=== PATIENT | male | born 1940 | race Caucasian/White ===

== ENCOUNTER 2020-05-13 05:32 | Inpatient (IN) | payer MEDICARE, BC ==
[2020-05-13] MEDS ORDERED: Albuterol/Ipratropium 3.0-0.5 MG/3 ML Neb Soln NEB ONE (05:37)
[2020-05-13] MEDS ORDERED: methylPREDNISolone Sodium Succinate 125 MG/2 ML SDV IV ONE (05:40)
--- NOTE | 2020-05-13 05:48 | EDM.PDOC ---
ED HPI GENERAL MEDICAL PROBLEM - General Stated Complaint: TRANSFER FROM [facility] Time Seen by Provider: 05/13/20 05:44 Source of Information: Reports: Patient, EMS History Limitations: Reports: No Limitations - History of Present Illness INITIAL COMMENTS - FREE TEXT/NARRATIVE: 79M presents as transfer from outside ED. Patient notes chronic LBP which has been worsening since he ran out of fentanyl this morning. He notes generalized weakness and feeling unwell. Denies SOB, abdominal pain, dysuria, fevers, N/V. Middle Back Pain Score (Numeric/FACES): 10 - Related Data Allergies Allergy/AdvReac Type Severity Reaction Status Date / Time No Known Allergies Allergy Verified 05/13/20 05:45 ED ROS GENERAL - Review of Systems Review Of Systems: Comprehensive ROS is negative, except as noted in HPI. ED EXAM, GENERAL - Physical Exam Exam: See Below Exam Limited By: No Limitations General Appearance: Alert, WD/WN, No Apparent Distress Head: Atraumatic Respiratory/Chest: No Respiratory Distress, No Accessory Muscle Use, Wheezing Cardiovascular: Normal Peripheral Pulses, Regular Rate, Rhythm GI/Abdominal: Soft, Non-Tender, Other (easily reducible large hernia defect) (Male) Exam: Other (clifton in place) Back Exam: Normal Inspection Extremities: Normal Inspection Neurological: Alert Psychiatric: Normal Affect, Normal Mood Skin Exam: Warm, Dry Course - Vital Signs Last Recorded V/S: Last Vital Signs Temp 97.6 F 05/13/20 05:37 Pulse 89 05/13/20 05:37 Resp 22 H 05/13/20 05:37 BP 101/76 05/13/20 05:37 Pulse Ox 96 05/13/20 05:37 - Orders/Labs/Meds Orders: Active Orders 24 hr Category Date Time Status Admission Status [Patient Status] [ADT] Stat ADT 05/13/20 06:22 Active RT Aerosol Therapy [RC] ASDIRECTED Care 05/13/20 05:38 Active Abdomen Pelvis w Cont [CT] Stat Exams 05/13/20 06:17 Ordered B-TYPE NATRIURETIC PEPTIDE,BNP [CHEM] Stat Lab 05/13/20 05:45 Received BASIC METABOLIC PANEL,BMP [CHEM] Stat Lab 05/13/20 05:45 Received Labs: Laboratory Tests 05/13/20 Range/Units 05:45 WBC 10.88 (4.0-11.0) K/uL RBC 4.52 (4.50-5.90) M/uL Hgb 9.1 L (13.0-17.0) g/dL Hct 33.4 L (38.0-50.0) % MCV 73.9 L (80.0-98.0) fL MCH 20.1 L (27.0-32.0) pg MCHC 27.2 L (31.0-37.0) g/dL RDW Std Deviation 47.5 (28.0-62.0) fl RDW Coeff of Trixie 18 H (11.0-15.0) % Plt Count 382 (150-400) K/uL MPV 9.60 (7.40-12.00) fL Neut % (Auto) 71.6 (48.0-80.0) % Lymph % (Auto) 15.9 L (16.0-40.0) % [place] % (Auto) 9.3 (0.0-15.0) % Eos % (Auto) 2.6 (0.0-7.0) % Baso % (Auto) 0.6 (0.0-1.5) % Neut # (Auto) 7.8 H (1.4-5.7) K/uL Lymph # (Auto) 1.7 (0.6-2.4) K/uL [place] # (Auto) 1.0 H (0.0-0.8) K/uL Eos # (Auto) 0.3 (0.0-0.7) K/uL Baso # (Auto) 0.1 (0.0-0.1) K/uL Nucleated RBC % 0.0 /100WBC Nucleated RBCs # 0 K/uL Meds: Medications Discontinued Medications Generic Name Dose Route Start Last Admin Trade Name Freq PRN Reason Stop Dose Admin Albuterol/Ipratropium 3 ml 05/13/20 05:37 05/13/20 05:53 Duoneb 3.0-0.5 Mg/3 Ml NEB 05/13/20 05:38 3 ml ONETIME ONE Administration Methylprednisolone Sodium Succinate 125 mg 05/13/20 05:40 05/13/20 05:57 Solu-Medrol IV 05/13/20 05:41 125 mg ONETIME ONE Administration Morphine Sulfate 4 mg 05/13/20 06:42 Morphine IVPUSH 05/13/20 06:43 ONETIME ONE - Re-Assessments/Exams Free Text/Narrative Re-Assessment/Exam: 05/13/20 05:46 Patient transferred from outside ED For urinary retention 600cc. Clifton placed there. On labs at outside ED was found to be negative for COVID, WBC 11, low h/h 9.1/32.9, normal renal function, UA with evidence of UTI. Will get CXR and repeat labs. Patient got ceftriaxone [employer]. Free Text/Narrative Re-Assessment/Exam: 05/13/20 06:[address] Guerra who agrees to admit patient pending CT A/P to r/o significant hydronephrosis or acute intraabdominal pathology requiring urology consult as Dr. Barrera is not on this weekend. Will order CT A/P and plan for admission 05/13/20 06:49 Admit orders placed; will sign out to day-team ED physician to f/u CT A/P but with plans to admit if nothing acute. Departure - Departure Time of Disposition: 06:50 Disposition: Admitted As Inpatient 68 Condition: Good Clinical Impression: UTI, Urinary tract infectious disease - Discharge Information Sepsis Event Note (ED) - Evaluation Sepsis Screening Result: No Definite Risk - Focused Exam Vital Signs: Vital Signs Temp Pulse Resp BP Pulse Ox 05/13/20 05:37 97.6 F 89 22 H 101/76 96 - My Orders Last 24 Hours: My Active Orders 05/13/20 05:38 RT Aerosol Therapy [RC] ASDIRECTED 05/13/20 05:45 B-TYPE NATRIURETIC PEPTIDE,BNP [CHEM] Stat BASIC METABOLIC PANEL,BMP [CHEM] Stat 05/13/20 06:17 Abdomen Pelvis w Cont [CT] Stat 05/13/20 06:22 Admission Status [Patient Status] [ADT] Stat - Assessment/Plan Last 24 Hours: My Active Orders 05/13/20 05:38 RT Aerosol Therapy [RC] ASDIRECTED 05/13/20 05:45 B-TYPE NATRIURETIC PEPTIDE,BNP [CHEM] Stat BASIC METABOLIC PANEL,BMP [CHEM] Stat 05/13/20 06:17 Abdomen Pelvis w Cont [CT] Stat 05/13/20 06:22 Admission Status [Patient Status] [ADT] Stat
[2020-05-13] MEDS ORDERED: Morphine 4 MG/ML Syringe IVPUSH ONE ×2 (06:42→13:30)
--- NOTE | 2020-05-13 06:47 | CR ---
INDICATION: Shortness of breath. TECHNIQUE: Chest 1 view COMPARISON: Chest radiograph 02/11/2019. No report is available. FINDINGS: The patient is rotated and the right costophrenic angle is incompletely imaged. There are patchy opacities in the left mid and lower lung which could represent pneumonia. There are similar-appearing opacities on the prior exam. No dense consolidation. No pleural effusion or pneumothorax. Heart size upper limits of normal. Normal pulmonary vascularity. IMPRESSION: Patchy opacities in the left mid and lower lung could represent pneumonia. Dictated by Stacy Dunn MD @ May 13 2020 6:42AM Signed by Dr. Stacy Dunn @ May 13 2020 6:44AM
[2020-05-13 06:49] LABS: BLOOD UREA NITROGEN,BUN 16 mg/dL (7.0-18.0); CARBON DIOXIDE,CO2 28.9 mmol/L (21.0-32.0); CHLORIDE,CL 102 mmol/L (98-107); GLUCOSE RANDOM 158 mg/dL (74-106); SODIUM,NA 137 mmol/L (136-148)
[2020-05-13] MEDS ORDERED: Iopamidol 755 Mg/ML 100 ML Bottle IVPUSH STA (07:28)
--- NOTE | 2020-05-13 08:02 | CT ---
INDICATION: Urinary retention status post Moeller, UTI. TECHNIQUE: CT abdomen and pelvis acquired with 100 cc Isovue 370 IV contrast. Coronal and sagittal reconstructions. COMPARISON: CT chest, abdomen, pelvis 04/25/2018. No report is available. FINDINGS: Focal fatty infiltration of the liver about the falciform fissure. Hepatic and portal veins are patent. The gallbladder, spleen, pancreas, and adrenal glands are negative. Symmetric enhancement of the kidneys. No hydronephrosis. No obstructing urinary calculi. Moeller catheter within an underdistended bladder. Gas within the bladder related instrumentation. No retained urine within the bladder. The bladder is diffusely thick-walled which is likely due to combination of underdistention and chronic bladder outlet obstruction by the mildly enlarged prostate. No perivesical fat stranding or mucosal hyperenhancement of the bladder. There is a stable 2.4 cm round peripherally hyperdense structure in the left anterior pelvis (series 201, image 118) which appears separate from the colon and could represent prior fat necrosis. This is indeterminate but likely benign given stability. No bowel dilation. Colonic diverticulosis. The appendix is not identified. Midline ventral hernia containing multiple loops of nonobstructed bowel. The amount of bowel within the hernia has increased since prior exam. No evidence of incarceration. No intraperitoneal free air or fluid. Aortoiliac vascular calcifications. No lymphadenopathy. Degenerative changes of the spine. There are patchy consolidations in the lower lobes bilaterally, left greater than right. Findings are suspicious for pneumonia. 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 Coronary artery calcifications. IMPRESSION: 1. Patchy consolidations in the lower lobes bilaterally are suspicious for pneumonia. 2. No other acute findings in the abdomen or pelvis. 3. Moeller catheter within an underdistended bladder. The bladder is diffusely thick-walled which is likely due to a combination of underdistention and chronic bladder outlet obstruction by the mildly enlarged prostate. No evidence of bladder inflammation. No retained urine within the bladder. 4. Midline ventral hernia containing an increased number of nonobstructing bowel loops compared to prior exam. No evidence of incarceration. Please note that all CT scans at this facility use dose modulation, iterative reconstruction, and/or weight-based dosing when appropriate to reduce radiation dose to as low as reasonably achievable. Dictated by Stacy Dunn MD @ May 13 2020 7:45AM Signed by Dr. Stacy Dunn @ May 13 2020 8:01AM
--- NOTE | 2020-05-13 08:10 | PCM.SN.2 ---
- Free Text/Narrative Note: I assumed care of this patient from Dr. Elmore at 7 AM. 79-year-old male with urinary obstruction and chronic back pain awaiting admission, waiting on results of the CT abdomen/pelvis. This study resulted and showed evidence of chronic urinary obstruction, Moeller is in place, and there was some concern for bibasilar pneumonia. Patient is on nasal cannula oxygen with a history of COPD. I did discuss with the admitting hospitalist Dr. Guerra who would favor treatment for community-acquired pneumonia. He already received IV ceftriaxone at the sending facility. I ordered a dose of p.o. azithromycin. He will be admitted to the observation status.
[2020-05-13] MEDS ORDERED: oxyCODONE 5 MG Tab PO ONE (08:13)
[2020-05-13] MEDS ORDERED: Azithromycin 250 MG Tab PO SCH (08:15)
[2020-05-13] MEDS ORDERED: Sodium Chloride 0.9% 2.5 ML Syringe FLUSH PRN (08:20)
[2020-05-13] MEDS ORDERED: Ondansetron 4 MG/2 ML SDV IVPUSH PRN (08:20)
[2020-05-13] MEDS ORDERED: Acetaminophen 325 MG Tab PO PRN (08:20)
--- NOTE | 2020-05-13 08:28 | PCM.HP.2 ---
H&P History of Present Illness - General Date of Service: 05/13/20 Admit Problem/Dx: Admission Diagnosis/Problem Admission Diagnosis/Problem UTI, Urinary tract infectious disease Source of Information: Patient, Old Records History Limitations: Reports: No Limitations - History of Present Illness Initial Comments - Free Text/Narative: This 79 year old male with pmh of chronic back pain on narcotics, COPD, BPH with urinary retention and hx of clifton, systolic heart failure, sciatica, afib on anticoagulation and hypothyroidism presented to [facility] for worsening back pain. He reports he has been dealing with increasing back pain for the last couple weeks. His PCP had obtained lumbar MRI, which showed extensive multilevel degenerative changes and degenerative disc disease noted throughout the lumbar spine. He continues to have numbness to lower legs, which is not new. He is non ambulatory, is able to stand and transfer with assist of one. This is his normal. No new stool incontinence or urinary incontinence. He reports otherwise he has felt ok. No fevers or chills, no increase in dyspnea. Reports a little bit of productive cough. Has wheezing. Denies chest pain. No abdominal pain. He reports he is urinating, but very small amounts and with a lot of pressure needed. He reports he had a clifton last fall, but wanted it removed and he has been taking Flomax. He smokes 1 ppd, no alcohol use and no recreational drug use. In the ED CBC 10,880. Hgb 9.1/ Hct 33.4 BMP WNL. BNP 73. CXR revealed bibasilar opacities, suggestive of pneumonia. CT abd/pelvis obtained shows thick walled bladder likely secondary to underdistention and chronic bladder outlet obstruction and mildly enlarged prostate. Ventral hernia with non obstructed bowel loops present. Patchy consolidations in lower lobes of lung bilaterally. He was treated with Rocephin in [place], given Azithromycin in ED. Clifton was placed in [place], UA there appeared to have significant pyruia, RBC with many bacteria. Ua here appears cleared after clifton placement. UC pending. BC obtained. He will be admitted inpatient for acute on chronic low back pain, UTI and CAP. PCP Breanna Mares NP, [place] Middle Back Pain Score (Numeric/FACES): 10 - Related Data Allergies/Adverse Reactions: Allergies Allergy/AdvReac Type Severity Reaction Status Date / Time No Known Allergies Allergy Verified 05/13/20 11:22 Home Medications: Home Meds Acetaminophen [Pain Relief] 500 mg PO Q6H PRN 05/13/20 [History] Acetaminophen/oxyCODONE [Percocet 325-5 MG] 5 - 325 mg PO Q6H PRN 05/13/20 [ History] Albuterol Sulfate [Albuterol Sulfate Hfa] 2 inh INH Q4H PRN 05/13/20 [History] Albuterol/Ipratropium [DuoNeb 3.0-0.5 MG/3 ML] 3 ml NEB QID PRN 05/13/20 [History] Allopurinol [Zyloprim] 100 mg PO DAILY 05/13/20 [History] Apixaban [Eliquis] 5 mg PO BID 05/13/20 [History] Ciprofloxacin HCl [Cipro] 500 mg PO Q12H 05/13/20 [History] DULoxetine [Cymbalta] 30 mg PO DAILY 05/13/20 [History] Digoxin 0.25 mg PO DAILY 05/13/20 [History] Docusate Sodium [Colace] 100 mg PO DAILY 05/13/20 [History] Dutasteride [Avodart] 0.5 mg PO DAILY 05/13/20 [History] Empagliflozin [Jardiance] 10 mg PO DAILY 05/13/20 [History] Ferrous Sulfate 325 mg PO DAILY 05/13/20 [History] Furosemide 40 mg PO DAILY 05/13/20 [History] Gabapentin [Neurontin] 300 mg PO TID 05/13/20 [History] Levothyroxine [Synthroid] 88 mcg PO DAILY 05/13/20 [History] Nystatin [Nystatin Crm] 1 applic TOP BID 05/13/20 [History] Omeprazole 20 mg PO BIDAC 05/13/20 [History] Phenazopyridine [Pyridium] 100 mg PO TID PRN 05/13/20 [History] Rosuvastatin [Crestor] 5 mg PO BEDTIME 05/13/20 [History] Spironolactone [Aldactone] 25 mg PO DAILY 05/13/20 [History] Tamsulosin HCl [Flomax] 0.8 mg PO BEDTIME 05/13/20 [History] dilTIAZem HCL [Diltiazem 24Hr ER] 300 mg PO DAILY 05/13/20 [History] fentaNYL [Fentanyl] 25 mcg TD Q72H 05/13/20 [History] metFORMIN HCl [Glucophage] 1,000 mg PO BIDMEALS 05/13/20 [History] predniSONE [Prednisone] 10 mg PO . DIRECTED PRN 05/13/20 [History] sitaGLIPtin Phosphate [Januvia] 50 mg PO DAILY 05/13/20 [History] Past Medical History HEENT History: Reports: Hard of Hearing, Impaired Vision Cardiovascular History: Reports: Afib, Arrhythmia, Heart Murmur, High Cholesterol, Hypertension, SOB on Exertion, Other (See Below) Other Cardiovascular History: decreased ejection fraction, bilat lower extremity edema Respiratory History: Reports: COPD, Sleep Apnea, SOB Gastrointestinal History: Reports: Hiatal Hernia Genitourinary History: Reports: BPH, Prostate Disorder, Retention, Urinary Musculoskeletal History: Reports: Back Pain, Chronic, Fracture, Fibromyalgia, Gout, Osteoarthritis, RA, Other (See Below) Other Musculoskeletal History: spinal stenosis, sciatica Endocrine/Metabolic History: Reports: Diabetes, Type II, Hypothyroidism, Obesity/BMI 30+ Hematologic History: Reports: Anemia, Anticoagulation Therapy, Iron Deficiency - Infectious Disease History Infectious Disease History: Reports: Chicken Pox - Past Surgical History GI Surgical History: Reports: Appendectomy, Hernia, Inguinal, Hernia Repair/Other Musculoskeletal Surgical History: Reports: Other (See Below) Other Musculoskeletal Surgeries/Procedures:: c spine surgery, lower back surgery Social & Family History - Family History Family Medical History: Noncontributory - Tobacco Use Smoking Status *Q: Current Some Day Smoker Years of Tobacco use: 60 Packs/Tins Daily: 1 - Caffeine Use Caffeine Use: Reports: Coffee - Alcohol Use Alcohol Use History: No - Recreational Drug Use Recreational Drug Use: No - Living Situation & Occupation Occupation: Disabled H&P Review of Systems - Review of Systems: Review Of Systems: See Below General: Reports: No Symptoms. Denies: Fever, Chills Pulmonary: Reports: Wheezing. Denies: Shortness of Breath Cardiovascular: Reports: Edema (feet). Denies: Chest Pain, Palpitations Gastrointestinal: Denies: Abdominal Pain, Black Stool, Bloody Stool, Nausea, Stool Incontinence, Vomiting Genitourinary: Reports: Retention. Denies: Incontinence Skin: Reports: No Symptoms Psychiatric: Reports: No Symptoms Neurological: Reports: Gait Disturbance (at baseline), Other (numbness to lower legs, which is chronic, no change. No change parathesias, just pain to lower back is worse) Hematologic/Lymphatic: Reports: No Symptoms Immunologic: Reports: No Symptoms Exam - Exam Exam: See Below - Vital Signs Vital Signs: Last Vital Signs Temp 97.6 F 05/13/20 05:37 Pulse 89 05/13/20 05:37 Resp 22 H 05/13/20 07:33 BP 105/52 L 05/13/20 07:33 Pulse Ox 93 L 05/13/20 07:33 Weight: 104.326 kg - Exam General: Alert, Oriented, Cooperative, Mild Distress (back pain) HEENT: Conjunctiva Clear, Mucosa Moist & [place], Posterior Pharynx Clear Lungs: Decreased Breath Sounds, Crackles, Wheezing Cardiovascular: Regular Rate, Irregular Rhythm, Systolic Murmur GI/Abdominal Exam: Normal Bowel Sounds, Soft, Non-Tender, Other (ventral hernia, easily reducible, no pain) Extremities: Normal Inspection, Normal Range of Motion, Non-Tender, Pedal Edema (+1 pitting to feet) - Patient Data Lab Results Last 24 hrs: Laboratory Results - last 24 hr 05/13/20 05/13/20 05/13/20 Range/Units 05:45 05:45 05:45 WBC 10.88 (4.0-11.0) K/uL RBC 4.52 (4.50-5.90) M/uL Hgb 9.1 L (13.0-17.0) g/dL Hct 33.4 L (38.0-50.0) % MCV 73.9 L (80.0-98.0) fL MCH 20.1 L (27.0-32.0) pg MCHC 27.2 L (31.0-37.0) g/dL RDW Std Deviation 47.5 (28.0-62.0) fl RDW Coeff of Trixie 18 H (11.0-15.0) % Plt Count 382 (150-400) K/uL MPV 9.60 (7.40-12.00) fL Neut % (Auto) 71.6 (48.0-80.0) % Lymph % (Auto) 15.9 L (16.0-40.0) % [place] % (Auto) 9.3 (0.0-15.0) % Eos % (Auto) 2.6 (0.0-7.0) % Baso % (Auto) 0.6 (0.0-1.5) % Neut # (Auto) 7.8 H (1.4-5.7) K/uL Lymph # (Auto) 1.7 (0.6-2.4) K/uL [place] # (Auto) 1.0 H (0.0-0.8) K/uL Eos # (Auto) 0.3 (0.0-0.7) K/uL Baso # (Auto) 0.1 (0.0-0.1) K/uL Nucleated RBC % 0.0 /100WBC Nucleated RBCs # 0 K/uL Sodium 137 (136-148) mmol/L Potassium 4.0 (3.5-5.1) mmol/L Chloride 102 (98-107) mmol/L Carbon Dioxide 28.9 (21.0-32.0) mmol/L BUN 16 (7.0-18.0) mg/dL Creatinine 0.6 L (0.8-1.3) mg/dL Est Cr Clr Drug Dosing 113.17 mL/min Estimated GFR (MDRD) > 60.0 ml/min Glucose 158 H (74-106) mg/dL Calcium 8.0 L (8.5-10.1) mg/dL B-Natriuretic Peptide 73 (<100) PG/ML Result Diagrams: 05/13/20 05:45 05/13/20 05:45 Sepsis Event Note - Evaluation Sepsis Screening Result: No Definite Risk - Focused Exam Vital Signs: Vital Signs Temp Pulse Resp BP Pulse Ox 05/13/20 07:33 22 H 105/52 L 93 L 05/13/20 05:37 97.6 F 89 22 H 101/76 96 Date Exam was Performed: 05/13/20 Time Exam was Performed: 13:26 - Problem List (1) Intractable back pain SNOMED Code(s): 174486627 ICD Code: M54.9 - DORSALGIA, UNSPECIFIED Status: Acute Current Visit: Yes (2) UTI, Urinary tract infectious disease SNOMED Code(s): 63794268 ICD Code: N39.0 - URINARY TRACT INFECTION, SITE NOT SPECIFIED Status: Acute Current Visit: No (3) CAP (community acquired pneumonia) SNOMED Code(s): 421220922 ICD Code: J18.9 - PNEUMONIA, UNSPECIFIED ORGANISM Status: Acute Current Visit: Yes (4) Urinary retention SNOMED Code(s): 339715573 ICD Code: R33.9 - RETENTION OF URINE, UNSPECIFIED Status: Acute Current Visit: Yes (5) Afib SNOMED Code(s): 72332866 ICD Code: I48.91 - UNSPECIFIED ATRIAL FIBRILLATION Status: Chronic C urrent Visit: Yes Qualifiers: Atrial fibrillation type: unspecified chronic Qualified Code(s): I48.20 - Chronic atrial fibrillation, unspecified; I48.2 - Chronic atrial fibrillation (6) Systolic heart failure SNOMED Code(s): 195894140 ICD Code: I50.20 - UNSPECIFIED SYSTOLIC (CONGESTIVE) HEART FAILURE Status: Chronic Current Visit: Yes Qualifiers: Heart failure chronicity: chronic Qualified Code(s): I50.22 - Chronic systolic (congestive) heart failure (7) Anticoagulated SNOMED Code(s): 418389826, 568864809 ICD Code: Z79.01 - MCFP (CURRENT) USE OF ANTICOAGULANTS Status: Chronic Current Visit: Yes (8) Rheumatoid arthritis SNOMED Code(s): 32781159 ICD Code: M06.9 - RHEUMATOID ARTHRITIS, UNSPECIFIED Status: Chronic Current Visit: Yes (9) Fibromyalgia SNOMED Code(s): 489261333 ICD Code: M79.7 - FIBROMYALGIA Status: Chronic Current Visit: Yes (10) COPD (chronic obstructive pulmonary disease) SNOMED Code(s): 08506244 ICD Code: J44.9 - CHRONIC OBSTRUCTIVE PULMONARY DISEASE, UNSPECIFIED Status: Chronic Current Visit: Yes (11) Oxygen dependent SNOMED Code(s): 623265427703 ICD Code: Z99.81 - DEPENDENCE ON SUPPLEMENTAL OXYGEN Status: Chronic Current Visit: Yes (12) ALF (obstructive sleep apnea) SNOMED Code(s): 42586733 ICD Code: G47.33 - OBSTRUCTIVE SLEEP APNEA (ADULT) (PEDIATRIC) Status: Chronic Current Visit: Yes (13) Hypothyroid SNOMED Code(s): 81102231 ICD Code: E03.9 - HYPOTHYROIDISM, UNSPECIFIED Status: Chronic Current Visit: Yes (14) BPH (benign prostatic hyperplasia) SNOMED Code(s): 900679999 ICD Code: N40.0 - BENIGN PROSTATIC HYPERPLASIA WITHOUT LOWER URINRY TRACT SYMP Status: Chronic Current Visit: Yes (15) Anemia in chronic illness SNOMED Code(s): 277026747 ICD Code: D63.8 - ANEMIA IN OTHER CHRONIC DISEASES CLASSIFIED ELSEWHERE Status: Chronic Current Visit: Yes (16) HTN (hypertension) SNOMED Code(s): 18718218 ICD Code: I10 - ESSENTIAL (PRIMARY) HYPERTENSION Status: Chronic Current Visit: Yes (17) HLD (hyperlipidemia) SNOMED Code(s): 70617811 ICD Code: E78.5 - HYPERLIPIDEMIA, UNSPECIFIED Status: Chronic Current Visit: Yes (18) Sciatica SNOMED Code(s): 29566723 ICD Code: M54.30 - SCIATICA, UNSPECIFIED SIDE Status: Chronic Current Visit: Yes Qualifiers: Laterality: bilateral Qualified Code(s): M54.31 - Sciatica, right side; M54.32 - Sciatica, left side (19) Spinal stenosis of lumbar region with neurogenic claudication SNOMED Code(s): 96830114, 092968812 ICD Code: M48.062 - SPINAL STENOSIS, LUMBAR REGION WITH NEUROGENIC CLAUDICATION Status: Chronic Current Visit: Yes (20) DM type 2 (diabetes mellitus, type 2) SNOMED Code(s): 47483101 ICD Code: E11.9 - TYPE 2 DIABETES MELLITUS WITHOUT COMPLICATIONS Status: Chronic Current Visit: Yes Qualifiers: Diabetes mellitus terminal worker insulin use: without terminal worker use Problem List Initiated/Reviewed/Updated: Yes Orders Last 24hrs: Active Orders 24 hr Category Date Time Status Admission Status [Patient Status] [ADT] Stat ADT 05/13/20 06:22 Active Intake and Output [RC] QSHIFT Care 05/13/20 08:27 Ordered Oxygen Therapy [RC] PRN Care 05/13/20 08:20 Ordered RT Aerosol Therapy [RC] ASDIRECTED Care 05/13/20 05:38 Active RT Aerosol Therapy [RC] ASDIRECTED Care 05/13/20 08:21 Ordered Up With Assistance [RC] ASDIRECTED Care 05/13/20 08:20 Ordered Urinary Catheter Assessment [RC] ASDIRECTED Care 05/13/20 08:26 Ordered VTE/DVT Education [RC] PER UNIT ROUTINE Care 05/13/20 08:20 Ordered Vital Signs [RC] Q4H Care 05/13/20 08:20 Ordered Regular Diet [DIET] Diet 05/13/20 Breakfast Ordered BASIC METABOLIC PANEL,BMP [CHEM] AM Lab 05/14/20 05:11 Ordered BASIC METABOLIC PANEL,BMP [CHEM] AM Lab 05/15/20 05:11 Ordered BASIC METABOLIC PANEL,BMP [CHEM] AM Lab 05/16/20 05:11 Ordered CBC WITH AUTO DIFF [HEME] AM Lab 05/14/20 05:11 Ordered CBC WITH AUTO DIFF [HEME] AM Lab 05/15/20 05:11 Ordered CBC WITH AUTO DIFF [HEME] AM Lab 05/16/20 05:11 Ordered CULTURE BLOOD [BC] Stat Lab 05/13/20 08:25 Ordered CULTURE BLOOD [BC] Stat Lab 05/13/20 08:25 Ordered MAGNESIUM [CHEM] AM Lab 05/14/20 05:11 Ordered MAGNESIUM [CHEM] AM Lab 05/15/20 05:11 Ordered MAGNESIUM [CHEM] AM Lab 05/16/20 05:11 Ordered UA RFX GABRIELA AND CULT IF INDIC [URIN] Urgent Lab 05/13/20 08:22 Ordered Acetaminophen [Tylenol] Med 05/13/20 08:20 Ordered 650 mg PO Q4H PRN Albuterol/Ipratropium [DuoNeb 3.0-0.5 MG/3 ML] Med 05/13/20 10:00 Ordered 3 ml NEB Q4HRRT Azithromycin [Zithromax] Med 05/14/20 08:30 Ordered 500 mg PO Q24H Ondansetron [Zofran] Med 05/13/20 08:20 Ordered 4 mg IVPUSH Q4H PRN Sodium Chloride 0.9% [Normal Saline] 1,000 ml Med 05/13/20 08:30 Ordered IV Q10H Sodium Chloride 0.9% [Saline Flush] Med 05/13/20 08:20 Ordered 2.5 ml FLUSH ASDIRECTED PRN cefTRIAXone [Rocephin in Dextrose,Iso-Osm 1 GM/50 ML] 1 Med 05/14/20 06:00 Ordered gm Premix Bag 1 bag IV Q24H methylPREDNISolone Sod Succ [Solu-MEDROL] Med 05/13/20 21:00 Ordered 40 mg IV Q12H Blood Culture x2 Reflex Set [OM.PC] Stat Oth 05/13/20 08:25 Ordered Saline Lock Insert [OM.PC] Routine Oth 08/07/20 08:20 Ordered Resuscitation Status Routine Resus Stat 05/13/20 08:20 Ordered Medication Orders Acetaminophen (Tylenol) 650 mg PO Q4H PRN PRN Reason: Pain (Mild 1-3)/fever Albuterol/Ipratropium (Duoneb 3.0-0.5 Mg/3 Ml) 3 ml NEB Q4HRRT YULISA Azithromycin (Zithromax) 500 mg PO Q24H YULISA Ceftriaxone Sodium/Dextrose 1 (gm/ Premix) 50 mls @ 100 mls/hr IV Q24H YULISA Sodium Chloride (Normal Saline) 1,000 mls @ 100 mls/hr IV Q10H YULISA Methylprednisolone Sodium Succinate (Solu-Medrol) 40 mg IV Q12H YULISA Ondansetron HCl (Zofran) 4 mg IVPUSH Q4H PRN PRN Reason: Nausea Sodium Chloride (Saline Flush) 2.5 ml FLUSH ASDIRECTED PRN PRN Reason: Keep Vein Open Assessment/Plan Comment:: This 79 year old male admitted with intractable acute on chronic back pain, UTI and CAP 1. Intractable back pain - Acute on chronic - Recnetly had lumbar imagaging showing lumbar stenosis and multi level severe degenerative disease. - MRI thoracic and cervical to fully evaluate, but patient unable to tolerate lying flat currently - Fentanyl patch in place, 25 mcg - Morphine IV PRN pain. - Unable to use NSAIDs due to anticoagulation - Add small dose Flexeril PRN muscle spasms - Tylenol PRN - Heat and Ice prn - Continue Cymbalta - PT/OT to evaluate and treat 2. UTI: - Continue Rocephin - UC pending, - Will need to touch base with [place] regarding UC in the coming days. 3. CAP: - Rocephin and Azithromycin - Duonebs PRN - Solumedrol due to wheezing and hx COPD - Intermittent oxygen use at home, not all the time per patient report - Encourage IS, CDB 4. COPD: - Continue inhalers and Duonebs - Oxygen to keep sats 88% 5. Atrial fibrillation on chronic anticoagulation/HTN/HLD/CHF - Continue Digoxin and Diltiazem - Continue Eliquis - Continue Statin - Monitor VS. - Strict I/O, daily weights, low Na diet 6. DM Type 2: - Novolog SSI with meals - ADA diet - Hold PO medications for now. VTE prophylaxis: Eliquis Dispo: 2-3 days, may need placement due to back pain and inability to care for himself.
[2020-05-13] MEDS ORDERED: Sodium Chloride 0.9% 1,000 ML IV SCH (08:30)
[2020-05-13] MEDS: Albuterol/Ipratropium 3.0-0.5 MG/3 ML Neb Soln NEB SCH ×4 (09:47→21:11)
[2020-05-13] MEDS ORDERED: fentaNYL 25 MCG/HR Transdermal Patch TRDERM SCH (10:15)
[2020-05-13] MEDS ORDERED: Morphine 2 MG/ML SYRINGE IVPUSH PRN (10:42)
[2020-05-13] MEDS: Cyclobenzaprine 5 MG Tab PO PRN ×2 (12:41→20:26)
[2020-05-13] MEDS: Gabapentin 300 MG Cap PO SCH ×2 (13:29→21:59)
[2020-05-13] MEDS: Insulin Aspart 100 Units/ML 3 ML Pen SUBCUT SCH ×3 (13:29→17:41)
--- NOTE | 2020-05-13 14:16 | MR ---
MRI cervical spine Technique: T1, T2 and fat-suppressed inversion recovery sagittal images were obtained. T1-weighted axial images were also obtained. FFE axial images could not be obtained as patient could not tolerate completion of the exam. Findings: Diffuse and severe disc space narrowing is noted within the cervical and thoracic spine. Disc at C2-3 appears spared. Mild retrolisthesis at C5-6 is seen. Mild spondylolisthesis at C7-T1 and T1-2 is noted. Diffuse posterior disc bulges are seen. Central canal stenosis noted at C7-T1. Neural foramina are not optimally seen without the FFE sagittal images although the neural foramina appear to be diffusely narrowed throughout the cervical and upper thoracic spine. Cervical cord shows no abnormal signal or mass. Impression: 1. Limited study as patient could not complete the exam. 2. Diffuse and severe degenerative change as described above. Diagnostic code #3 This report was dictated in MDT
[2020-05-13] MEDS: fentaNYL 50 MCG/HR Transdermal Patch TRDERM SCH (15:20)
[2020-05-13] MEDS: Omeprazole 20 MG Cap.CR PO SCH (17:53)
[2020-05-13] MEDS: Acetaminophen/oxyCODONE 325-5 MG Tab PO PRN ×2 (17:53→23:31)
[2020-05-13] MEDS: Tamsulosin 0.4 MG Cap.ER PO SCH (20:23)
[2020-05-13] MEDS: Rosuvastatin 10 MG Tab PO SCH (20:24)
[2020-05-13] MEDS: Apixaban 5 MG Tab PO SCH (20:24)
[2020-05-13] MEDS: methylPREDNISolone Sodium Succinate 40 MG/1 ML SDV IV SCH (20:28)
[2020-05-13] MEDS: Nystatin Crm 30 GM Tube TOP SCH (20:29)
[2020-05-13] MEDS ORDERED: Non-Formulary Medication 1 Each (Nystatin 1 APPLIC) TOP SCH ×2 (21:00)
[2020-05-14] MEDS: cefTRIAXone 1 GM in Premix Bag 1 BAG IV SCH (01:21)
[2020-05-14] MEDS: Albuterol/Ipratropium 3.0-0.5 MG/3 ML Neb Soln NEB SCH ×6 (01:21→22:19)
[2020-05-14] MEDS: Morphine 4 MG/ML Syringe IVPUSH PRN (03:58)
[2020-05-14] MEDS ORDERED: cefTRIAXone 1 GM in Premix Bag 1 BAG IV SCH (06:00)
[2020-05-14 06:24] LABS: BLOOD UREA NITROGEN,BUN 14 mg/dL (7.0-18.0); CARBON DIOXIDE,CO2 27.7 mmol/L (21.0-32.0); CHLORIDE,CL 102 mmol/L (98-107); GLUCOSE RANDOM 304 mg/dL (74-106); POTASSIUM,K 4.6 mmol/L (3.5-5.1); SODIUM,NA 137 mmol/L (136-148)
[2020-05-14] MEDS: Gabapentin 300 MG Cap PO SCH ×3 (06:54→22:04)
[2020-05-14] MEDS: Omeprazole 20 MG Cap.CR PO SCH ×2 (06:54→17:31)
[2020-05-14] MEDS: Insulin Aspart 100 Units/ML 3 ML Pen SUBCUT SCH ×3 (08:50→16:37)
[2020-05-14] MEDS: methylPREDNISolone Sodium Succinate 40 MG/1 ML SDV IV SCH ×2 (08:53→21:04)
[2020-05-14] MEDS: Furosemide 40 MG Tab PO SCH (08:53)
[2020-05-14] MEDS: Diltiazem 180 MG Cap.CD PO SCH (08:53)
[2020-05-14] MEDS: Digoxin 250 MCG Tab PO SCH (08:54)
[2020-05-14] MEDS: Spironolactone 25 MG Tab PO SCH (08:54)
[2020-05-14] MEDS: DULoxetine 30 MG Cap PO SCH (08:54)
[2020-05-14] MEDS: Apixaban 5 MG Tab PO SCH ×2 (08:54→21:03)
[2020-05-14] MEDS: Diltiazem 120 MG Cap.CD PO SCH (08:55)
[2020-05-14] MEDS: Docusate Sodium 100 MG Cap PO SCH (08:55)
[2020-05-14] MEDS: Azithromycin 250 MG Tab PO SCH (08:55)
[2020-05-14] MEDS: Levothyroxine 88 MCG Tab PO SCH (08:56)
[2020-05-14] MEDS: Allopurinol 100 MG Tab PO SCH (08:56)
[2020-05-14] MEDS: Ferrous Sulfate 325 MG Tab PO SCH (08:56)
[2020-05-14] MEDS: Dutasteride 0.5 MG Cap PO SCH (08:57)
[2020-05-14] MEDS ORDERED: DILTIAZEM HCL 300 MG PO SCH (09:00)
[2020-05-14] MEDS: Nystatin Crm 30 GM Tube TOP SCH ×2 (09:01→22:05)
--- NOTE | 2020-05-14 12:32 | PCM.PN ---
- General Info Date of Service: 05/14/20 Admission Dx/Problem (Free Text): Admission Diagnosis/Problem Admission Diagnosis/Problem UTI, Urinary tract infectious disease - Review of Systems General: Reports: Fatigue. Denies: Fever, Weakness Pulmonary: Denies: Shortness of Breath, Pleuritic Chest Pain Cardiovascular: Denies: Chest Pain, Palpitations Gastrointestinal: Denies: Abdominal Pain, Constipation Genitourinary: Denies: Dysuria, Frequency, Burning Musculoskeletal: Reports: Back Pain, Leg Pain. Denies: Neck Pain, Shoulder Pain Neurological: Reports: Tingling (chronic), Difficulty Walking. Denies: Paresthesia, Syncope, Tremors Psychiatric: Denies: Confusion, Depression, Mood Lability, Anxiety, Cravings - Patient Data Vitals - Most Recent: Last Vital Signs Temp 37.2 C 05/14/20 12:00 Pulse 93 05/14/20 12:00 Resp 20 05/14/20 12:00 BP 117/54 L 05/14/20 12:00 Pulse Ox 96 05/14/20 12:00 Weight - Most Recent: 104.326 kg I&O - Last 24 Hours: Intake & Output 05/13/20 05/14/20 05/14/20 22:59 06:59 14:59 Intake Total 1090 600 Output Total 1000 1425 Balance 90 -825 Lab Results Last 24 Hours: Laboratory Results - last 24 hr 05/13/20 05/13/20 05/14/20 Range/Units 13:42 16:49 05:38 WBC 9.14 (4.0-11.0) K/uL RBC 4.26 L (4.50-5.90) M/uL Hgb 8.5 L (13.0-17.0) g/dL Hct 31.2 L (38.0-50.0) % MCV 73.2 L (80.0-98.0) fL MCH 20.0 L (27.0-32.0) pg MCHC 27.2 L (31.0-37.0) g/dL RDW Std Deviation 46.8 (28.0-62.0) fl RDW Coeff of Trixie 17 H (11.0-15.0) % Plt Count 378 (150-400) K/uL MPV 9.60 (7.40-12.00) fL Neut % (Auto) 89.2 H (48.0-80.0) % Lymph % (Auto) 6.0 L (16.0-40.0) % [place] % (Auto) 4.8 (0.0-15.0) % Eos % (Auto) 0.0 (0.0-7.0) % Baso % (Auto) 0.0 (0.0-1.5) % Neut # (Auto) 8.2 H (1.4-5.7) K/uL Lymph # (Auto) 0.6 (0.6-2.4) K/uL [place] # (Auto) 0.4 (0.0-0.8) K/uL Eos # (Auto) 0.0 (0.0-0.7) K/uL Baso # (Auto) 0.0 (0.0-0.1) K/uL Nucleated RBC % 0.0 /100WBC Nucleated RBCs # 0 K/uL Sodium (136-148) mmol/L Potassium (3.5-5.1) mmol/L Chloride (98-107) mmol/L Carbon Dioxide (21.0-32.0) mmol/L BUN (7.0-18.0) mg/dL Creatinine (0.8-1.3) mg/dL Est Cr Clr Drug Dosing mL/min Estimated GFR (MDRD) ml/min Glucose (74-106) mg/dL POC Glucose 250 H 316 H (60-110) mg/dL Calcium (8.5-10.1) mg/dL Magnesium (1.8-2.4) mg/dL 05/14/20 05/14/20 05/14/20 Range/Units 05:38 06:21 11:05 WBC (4.0-11.0) K/uL RBC (4.50-5.90) M/uL Hgb (13.0-17.0) g/dL Hct (38.0-50.0) % MCV (80.0-98.0) fL MCH (27.0-32.0) pg MCHC (31.0-37.0) g/dL RDW Std Deviation (28.0-62.0) fl RDW Coeff of Trixie (11.0-15.0) % Plt Count (150-400) K/uL MPV (7.40-12.00) fL Neut % (Auto) (48.0-80.0) % Lymph % (Auto) (16.0-40.0) % [place] % (Auto) (0.0-15.0) % Eos % (Auto) (0.0-7.0) % Baso % (Auto) (0.0-1.5) % Neut # (Auto) (1.4-5.7) K/uL Lymph # (Auto) (0.6-2.4) K/uL [place] # (Auto) (0.0-0.8) K/uL Eos # (Auto) (0.0-0.7) K/uL Baso # (Auto) (0.0-0.1) K/uL Nucleated RBC % /100WBC Nucleated RBCs # K/uL Sodium 137 (136-148) mmol/L Potassium 4.6 (3.5-5.1) mmol/L Chloride 102 (98-107) mmol/L Carbon Dioxide 27.7 (21.0-32.0) mmol/L BUN 14 (7.0-18.0) mg/dL Creatinine 0.6 L (0.8-1.3) mg/dL Est Cr Clr Drug Dosing 116.52 mL/min Estimated GFR (MDRD) > 60.0 ml/min Glucose 304 H (74-106) mg/dL POC Glucose 292 H 267 H (60-110) mg/dL Calcium 8.8 (8.5-10.1) mg/dL Magnesium 1.9 (1.8-2.4) mg/dL Johan Results Last 24 Hours: Microbiology 05/13/20 10:15 Aerobic Blood Culture - Preliminary Blood - Venous - Lab Draw NO GROWTH AFTER 1 DAY Anaerobic Blood Culture - Preliminary NO GROWTH AFTER 1 DAY 05/13/20 10:12 Aerobic Blood Culture - Preliminary Blood - Venous NO GROWTH AFTER 1 DAY Anaerobic Blood Culture - Preliminary NO GROWTH AFTER 1 DAY 05/13/20 10:30 Urine Culture - Preliminary Urine, [place] Cath ([place]) NO GROWTH AFTER 1 DAY Med Orders - Current: Current Medications Acetaminophen (Tylenol) 650 mg PO Q4H PRN PRN Reason: Pain (Mild 1-3)/fever Albuterol/Ipratropium (Duoneb 3.0-0.5 Mg/3 Ml) 3 ml NEB Q4HRRT [facility] Last Admin: 05/14/20 09:48 Dose: 3 ml Documented by: Allopurinol (Zyloprim) 100 mg PO DAILY [facility] Last Admin: 05/14/20 08:56 Dose: 100 mg Documented by: Apixaban (Eliquis) 5 mg PO BID [facility] Last Admin: 05/14/20 08:54 Dose: 5 mg Documented by: Azithromycin (Zithromax) 500 mg PO Q24H [facility] Last Admin: 05/14/20 08:55 Dose: 500 mg Documented by: Cyclobenzaprine HCl (Flexeril) 5 mg PO BID PRN PRN Reason: Muscle Spasm Last Admin: 05/13/20 20:26 Dose: 5 mg Documented by: Digoxin (Lanoxin) 250 mcg PO DAILY [facility] Last Admin: 05/14/20 08:54 Dose: 250 mcg Documented by: Diltiazem HCl (Cardizem Cd) 120 mg PO DAILY [facility] Last Admin: 05/14/20 08:55 Dose: 120 mg Documented by: Diltiazem HCl (Cardizem Cd) 180 mg PO DAILY [facility] Last Admin: 05/14/20 08:53 Dose: 180 mg Documented by: Docusate Sodium (Colace) 100 mg PO DAILY [facility] Last Admin: 05/14/20 08:55 Dose: 100 mg Documented by: Duloxetine HCl (Cymbalta) 30 mg PO DAILY [facility] Last Admin: 05/14/20 08:54 Dose: 30 mg Documented by: Dutasteride (Avodart) 0.5 mg PO DAILY [facility] Last Admin: 05/14/20 08:57 Dose: 0.5 mg Documented by: Fentanyl (Duragesic) 50 mcg TRDERM Q72H [facility] Last Admin: 05/13/20 15:20 Dose: 50 mcg Documented by: Ferrous Sulfate (Ferrous Sulfate) 325 mg PO DAILY [facility] Last Admin: 05/14/20 08:56 Dose: 325 mg Documented by: Furosemide (Lasix) 40 mg PO DAILY [facility] Last Admin: 05/14/20 08:53 Dose: 40 mg Documented by: Gabapentin (Neurontin) 300 mg PO TID [facility] Last Admin: 05/14/20 06:54 Dose: 300 mg Documented by: Ceftriaxone Sodium/Dextrose 1 (gm/ Premix) 50 mls @ 100 mls/hr IV Q24H [facility] Last Admin: 05/14/20 01:21 Dose: 100 mls/hr Documented by: Insulin Aspart (Novolog) 0 unit SUBCUT TIDAC [facility]; Protocol Last Admin: 05/14/20 11:21 Dose: 3 units Documented by: Levothyroxine Sodium (Synthroid) 88 mcg PO DAILY [facility] Last Admin: 05/14/20 08:56 Dose: 88 mcg Documented by: Methylprednisolone Sodium Succinate (Solu-Medrol) 40 mg IV Q12H [facility] Last Admin: 05/14/20 08:53 Dose: 40 mg Documented by: Miscellaneous Information (Remove Patch) 1 ea TRDERM Q72H [facility] Morphine Sulfate (Morphine) 4 mg IVPUSH Q3H PRN PRN Reason: Pain Last Admin: 05/14/20 03:58 Dose: 4 mg Documented by: Nystatin (Nystatin Crm) 0 gm TOP BID [facility] Last Admin: 05/14/20 09:01 Dose: 1 applic Documented by: Omeprazole (Omeprazole) 20 mg PO BIDAC [facility] Last Admin: 05/14/20 06:54 Dose: 20 mg Documented by: Ondansetron HCl (Zofran) 4 mg IVPUSH Q4H PRN PRN Reason: Nausea Oxycodone/Acetaminophen (Percocet 325-5 Mg) 1 tab PO Q6H PRN PRN Reason: severe pain Last Admin: 05/13/20 23:31 Dose: 1 tab Documented by: Rosuvastatin Calcium (Crestor) 5 mg PO BEDTIME [facility] Last Admin: 05/13/20 20:24 Dose: 5 mg Documented by: Sodium Chloride (Saline Flush) 2.5 ml FLUSH ASDIRECTED PRN PRN Reason: Keep Vein Open Spironolactone (Aldactone) 25 mg PO DAILY [facility] Last Admin: 05/14/20 08:54 Dose: 25 mg Documented by: Tamsulosin HCl (Flomax) 0.8 mg PO BEDTIME [facility] Last Admin: 05/13/20 20:23 Dose: 0.8 mg Documented by: Discontinued Medications Albuterol/Ipratropium (Duoneb 3.0-0.5 Mg/3 Ml) 3 ml NEB ONETIME ONE Stop: 05/13/20 05:38 Last Admin: 05/13/20 05:53 Dose: 3 ml Documented by: Azithromycin (Zithromax) 500 mg PO Q24H [facility] Last Admin: 05/13/20 08:23 Dose: 500 mg Documented by: Fentanyl (Duragesic) 25 mcg TRDERM Q72H [facility] Last Admin: 05/13/20 12:42 Dose: Not Given Documented by: Fentanyl (Duragesic) 25 mcg TRDERM Q72H [facility] Ceftriaxone Sodium/Dextrose 1 (gm/ Premix) 50 mls @ 100 mls/hr IV Q24H [facility] Sodium Chloride (Normal Saline) 1,000 mls @ 100 mls/hr IV Q10H [facility] Last Admin: 05/13/20 09:00 Dose: 100 mls/hr Documented by: Iopamidol (Isovue-370 (76%)) 100 ml IVPUSH ONETIME STA Stop: 05/13/20 07:29 Last Admin: 05/13/20 07:29 Dose: 100 ml Documented by: Methylprednisolone Sodium Succinate (Solu-Medrol) 125 mg IV ONETIME ONE Stop: 05/13/20 05:41 Last Admin: 05/13/20 05:57 Dose: 125 mg Documented by: Morphine Sulfate (Morphine) 4 mg IVPUSH ONETIME ONE Stop: 05/13/20 06:43 Last Admin: 05/13/20 07:30 Dose: 4 mg Documented by: Morphine Sulfate (Morphine) 2 mg IVPUSH Q3H PRN PRN Reason: Pain Last Admin: 05/13/20 12:36 Dose: 2 mg Documented by: Morphine Sulfate (Morphine) 3 mg IVPUSH ONETIME ONE Stop: 05/13/20 13:31 Last Admin: 05/13/20 13:29 Dose: 3 mg Documented by: Oxycodone HCl (Oxycodone) 10 mg PO ONETIME ONE Stop: 05/13/20 08:14 Last Admin: 05/13/20 08:23 Dose: 10 mg Documented by: - Exam Quality Assessment: Supplemental Oxygen General: Alert, Oriented Neck: Supple, Trachea Midline Lungs: Clear to Auscultation, Normal Respiratory Effort Cardiovascular: Regular Rate, Regular Rhythm GI/Abdominal Exam: Normal Bowel Sounds, Soft, Non-Tender Back Exam: Normal Inspection, Decreased Range of Motion. No: Full Range of Motion Extremities: Normal Inspection, Normal Range of Motion, Non-Tender Neurological: No New Focal Deficit, Normal Speech, Normal Tone, Strength Equal Bilateral, Reflexes Equal Bilateral, Sensation Intact. No: Normal Gait Sepsis Event Note - Evaluation Sepsis Screening Result: No Definite Risk - Focused Exam Vital Signs: Vital Signs Temp Pulse Pulse Resp BP BP Pulse Ox 05/14/20 12:00 37.2 C 93 20 117/54 L 96 05/14/20 08:55 84 127/50 L 05/14/20 08:54 86 05/14/20 08:00 37.0 C 86 16 127/50 L 95 05/14/20 04:11 37.2 C 90 23 H 106/55 L 92 L Date Exam was Performed: 05/14/20 Time Exam was Performed: 12:49 - Problem List & Annotations (1) CAP (community acquired pneumonia) SNOMED Code(s): 293907444 Code(s): J18.9 - PNEUMONIA, UNSPECIFIED ORGANISM Status: Acute Current Visit: Yes (2) Intractable back pain SNOMED Code(s): 106764856 Code(s): M54.9 - DORSALGIA, UNSPECIFIED Status: Acute Current Visit: Yes (3) Urinary retention SNOMED Code(s): 739166172 Code(s): R33.9 - RETENTION OF URINE, UNSPECIFIED Status: Acute Current Visit: Yes (4) Afib SNOMED Code(s): 51210877 Code(s): I48.91 - UNSPECIFIED ATRIAL FIBRILLATION Status: Chronic Current Visit: Yes Qualifiers: Atrial fibrillation type: unspecified chronic Qualified Code(s): I48.20 - Chronic atrial fibrillation, unspecified; I48.2 - Chronic atrial fibrillation (5) Anemia in chronic illness SNOMED Code(s): 597634060 Code(s): D63.8 - ANEMIA IN OTHER CHRONIC DISEASES CLASSIFIED ELSEWHERE Status: Chronic Current Visit: Yes (6) Anticoagulated SNOMED Code(s): 793160478, 085863127 Code(s): Z79.01 - MILITARY COOK (CURRENT) USE OF ANTICOAGULANTS Status: Chronic Current Visit: Yes (7) BPH (benign prostatic hyperplasia) SNOMED Code(s): 928084401 Code(s): N40.0 - BENIGN PROSTATIC HYPERPLASIA WITHOUT LOWER URINRY TRACT SYMP Status: Chronic Current Visit: Yes (8) COPD (chronic obstructive pulmonary disease) SNOMED Code(s): 42478660 Code(s): J44.9 - CHRONIC OBSTRUCTIVE PULMONARY DISEASE, UNSPECIFIED Status: Chronic Current Visit: Yes - Problem List Review Problem List Initiated/Reviewed/Updated: Yes - My Orders Last 24 Hours: My Active Orders 05/13/20 21:00 Nystatin [Nystatin Crm] 0 gm TOP BID 05/14/20 09:00 Diltiazem [Cardizem CD] 120 mg PO DAILY Diltiazem [Cardizem CD] 180 mg PO DAILY 05/16/20 14:15 Remove Patch 1 ea TRDERM Q72H - Plan Plan:: This 79 year old male admitted with intractable acute on chronic back pain, UTI and CAP 1. Intractable back pain - Acute on chronic - Recently had lumbar imaging showing lumbar stenosis and multi level severe degenerative disease. - MRI thoracic and cervical to fully evaluate, but patient unable to tolerate lying flat currently - Fentanyl patch in place, 50 mcg, dose was increased - Morphine IV PRN pain. - Unable to use NSAIDs due to anticoagulation - cont Flexeril PRN muscle spasms - Tylenol PRN - Heat and Ice prn - Continue Cymbalta - PT/OT to evaluate and treat 2. UTI: - Continue Rocephin - UC pending, - Will need to touch base with [place] regarding UC in the coming days. 3. CAP: - Rocephin and Azithromycin - Duonebs PRN - Solumedrol due to wheezing and hx COPD - Intermittent oxygen use at home, not all the time per patient report - Encourage IS, CDB 4. COPD: - Continue inhalers and Duonebs - Oxygen to keep sats 88% 5. Atrial fibrillation on chronic anticoagulation/HTN/HLD/CHF - Continue Digoxin and Diltiazem - Continue Eliquis - Continue Statin - Monitor VS. - Strict I/O, daily weights, low Na diet 6. DM Type 2: - Novolog SSI with meals - ADA diet - Hold PO medications for now. VTE prophylaxis: Eliquis Dispo: 2-3 days, may need placement due to back pain and inability to care for himself.
[2020-05-14] MEDS: Acetaminophen/oxyCODONE 325-5 MG Tab PO PRN ×2 (12:51→18:52)
[2020-05-14] MEDS: Tamsulosin 0.4 MG Cap.ER PO SCH (21:03)
[2020-05-14] MEDS: Rosuvastatin 10 MG Tab PO SCH (21:03)
[2020-05-15] MEDS: Morphine 4 MG/ML Syringe IVPUSH PRN (00:16)
[2020-05-15] MEDS: cefTRIAXone 1 GM in Premix Bag 1 BAG IV SCH (00:29)
[2020-05-15] MEDS: Acetaminophen/oxyCODONE 325-5 MG Tab PO PRN ×4 (02:02→22:35)
[2020-05-15] MEDS: Albuterol/Ipratropium 3.0-0.5 MG/3 ML Neb Soln NEB SCH ×6 (02:04→21:43)
[2020-05-15] MEDS: Omeprazole 20 MG Cap.CR PO SCH ×2 (06:35→18:16)
[2020-05-15] MEDS: Gabapentin 300 MG Cap PO SCH ×3 (06:35→21:51)
[2020-05-15 07:10] LABS: BLOOD UREA NITROGEN,BUN 16 mg/dL (7.0-18.0); CARBON DIOXIDE,CO2 29.9 mmol/L (21.0-32.0); CHLORIDE,CL 101 mmol/L (98-107); GLUCOSE RANDOM 263 mg/dL (74-106); POTASSIUM,K 4.8 mmol/L (3.5-5.1); SODIUM,NA 135 mmol/L (136-148)
[2020-05-15] MEDS: Insulin Aspart 100 Units/ML 3 ML Pen SUBCUT SCH ×3 (07:31→18:17)
[2020-05-15] MEDS: Azithromycin 250 MG Tab PO SCH (08:29)
[2020-05-15] MEDS: Dutasteride 0.5 MG Cap PO SCH (08:29)
[2020-05-15] MEDS: Spironolactone 25 MG Tab PO SCH (08:30)
[2020-05-15] MEDS: Apixaban 5 MG Tab PO SCH ×2 (08:30→21:49)
[2020-05-15] MEDS: Docusate Sodium 100 MG Cap PO SCH (08:30)
[2020-05-15] MEDS: Levothyroxine 88 MCG Tab PO SCH (08:30)
[2020-05-15] MEDS: Furosemide 40 MG Tab PO SCH (08:31)
[2020-05-15] MEDS: Allopurinol 100 MG Tab PO SCH (08:31)
[2020-05-15] MEDS: DULoxetine 30 MG Cap PO SCH (08:31)
[2020-05-15] MEDS: Ferrous Sulfate 325 MG Tab PO SCH (08:31)
[2020-05-15] MEDS: Diltiazem 180 MG Cap.CD PO SCH (08:33)
[2020-05-15] MEDS: methylPREDNISolone Sodium Succinate 40 MG/1 ML SDV IV SCH ×2 (08:33→21:53)
[2020-05-15] MEDS: Diltiazem 120 MG Cap.CD PO SCH (08:33)
[2020-05-15] MEDS: Digoxin 250 MCG Tab PO SCH (08:34)
[2020-05-15] MEDS: Nystatin Crm 30 GM Tube TOP SCH ×2 (08:43→21:00)
--- NOTE | 2020-05-15 11:20 | PCM.PN ---
- General Info Date of Service: 05/15/20 Admission Dx/Problem (Free Text): Admission Diagnosis/Problem Admission Diagnosis/Problem UTI, Urinary tract infectious disease Subjective Update: says he feels tired as he didnt sleep well night, still c/o back pain, able to walk, no new focal deficits, wbc count has increased, no fever, chills, cough - Review of Systems General: Reports: Weakness. Denies: Fever, Fatigue, Malaise Cardiovascular: Denies: Chest Pain, Palpitations Gastrointestinal: Denies: Abdominal Pain, Constipation, Decreased Appetite Genitourinary: Denies: Dysuria, Frequency, Burning, Pain Musculoskeletal: Reports: Back Pain, Leg Pain. Denies: Neck Pain, Shoulder Pain Skin: Denies: Jaundice, Mottled - Patient Data Vitals - Most Recent: Last Vital Signs Temp 37.0 C 05/15/20 08:00 Pulse 95 05/15/20 08:34 Resp 16 05/15/20 08:00 BP 119/54 L 05/15/20 08:33 Pulse Ox 95 05/15/20 08:00 Weight - Most Recent: 89.721 kg I&O - Last 24 Hours: Intake & Output 05/14/20 05/15/20 05/15/20 22:59 06:59 14:59 Intake Total 1150 1050 Output Total 1600 1450 Balance -450 -400 Lab Results Last 24 Hours: Laboratory Results - last 24 hr 05/14/20 05/15/20 05/15/20 Range/Units 16:35 06:28 06:28 WBC 12.14 H (4.0-11.0) K/uL RBC 4.25 L (4.50-5.90) M/uL Hgb 8.8 L (13.0-17.0) g/dL Hct 30.8 L (38.0-50.0) % MCV 72.5 L (80.0-98.0) fL MCH 20.7 L (27.0-32.0) pg MCHC 28.6 L (31.0-37.0) g/dL RDW Std Deviation 45.8 (28.0-62.0) fl RDW Coeff of Trixie 18 H (11.0-15.0) % Plt Count 351 (150-400) K/uL MPV 9.80 (7.40-12.00) fL Neut % (Auto) 87.7 H (48.0-80.0) % Lymph % (Auto) 5.8 L (16.0-40.0) % [place] % (Auto) 6.3 (0.0-15.0) % Eos % (Auto) 0.0 (0.0-7.0) % Baso % (Auto) 0.2 (0.0-1.5) % Neut # (Auto) 10.6 H (1.4-5.7) K/uL Lymph # (Auto) 0.7 (0.6-2.4) K/uL [place] # (Auto) 0.8 (0.0-0.8) K/uL Eos # (Auto) 0.0 (0.0-0.7) K/uL Baso # (Auto) 0.0 (0.0-0.1) K/uL Sodium 135 L (136-148) mmol/L Potassium 4.8 (3.5-5.1) mmol/L Chloride 101 (98-107) mmol/L Carbon Dioxide 29.9 (21.0-32.0) mmol/L BUN 16 (7.0-18.0) mg/dL Creatinine 0.8 (0.8-1.3) mg/dL Est Cr Clr Drug Dosing 87.39 mL/min Estimated GFR (MDRD) > 60.0 ml/min Glucose 263 H (74-106) mg/dL POC Glucose 362 H (60-110) mg/dL Calcium 9.0 (8.5-10.1) mg/dL Magnesium 1.8 (1.8-2.4) mg/dL 05/15/20 Range/Units 07:29 WBC (4.0-11.0) K/uL RBC (4.50-5.90) M/uL Hgb (13.0-17.0) g/dL Hct (38.0-50.0) % MCV (80.0-98.0) fL MCH (27.0-32.0) pg MCHC (31.0-37.0) g/dL RDW Std Deviation (28.0-62.0) fl RDW Coeff of Trixie (11.0-15.0) % Plt Count (150-400) K/uL MPV (7.40-12.00) fL Neut % (Auto) (48.0-80.0) % Lymph % (Auto) (16.0-40.0) % [place] % (Auto) (0.0-15.0) % Eos % (Auto) (0.0-7.0) % Baso % (Auto) (0.0-1.5) % Neut # (Auto) (1.4-5.7) K/uL Lymph # (Auto) (0.6-2.4) K/uL [place] # (Auto) (0.0-0.8) K/uL Eos # (Auto) (0.0-0.7) K/uL Baso # (Auto) (0.0-0.1) K/uL Sodium (136-148) mmol/L Potassium (3.5-5.1) mmol/L Chloride (98-107) mmol/L Carbon Dioxide (21.0-32.0) mmol/L BUN (7.0-18.0) mg/dL Creatinine (0.8-1.3) mg/dL Est Cr Clr Drug Dosing mL/min Estimated GFR (MDRD) ml/min Glucose (74-106) mg/dL POC Glucose 250 H (60-110) mg/dL Calcium (8.5-10.1) mg/dL Magnesium (1.8-2.4) mg/dL Johan Results Last 24 Hours: Microbiology 05/13/20 10:15 Aerobic Blood Culture - Preliminary Blood - Venous - Lab Draw NO GROWTH AFTER 2 DAYS Anaerobic Blood Culture - Preliminary NO GROWTH AFTER 2 DAYS 05/13/20 10:12 Aerobic Blood Culture - Preliminary Blood - Venous NO GROWTH AFTER 2 DAYS Anaerobic Blood Culture - Preliminary NO GROWTH AFTER 2 DAYS 05/13/20 10:30 Urine Culture - Final Urine, Moeller Cath (Indwelling) No Growth 05/14/20 17:52 Stool Occult Blood (JOHAN) - Final Stool / Feces NEGATIVE OCCULT BLOOD REFERENCE RANGE: NEGATIVE Med Orders - Current: Current Medications Acetaminophen (Tylenol) 650 mg PO Q4H PRN PRN Reason: Pain (Mild 1-3)/fever Albuterol/Ipratropium (Duoneb 3.0-0.5 Mg/3 Ml) 3 ml NEB Q4HRRT YULISA Last Admin: 05/15/20 09:23 Dose: 3 ml Documented by: Allopurinol (Zyloprim) 100 mg PO DAILY [facility] Last Admin: 05/15/20 08:31 Dose: 100 mg Documented by: Apixaban (Eliquis) 5 mg PO BID [facility] Last Admin: 05/15/20 08:30 Dose: 5 mg Documented by: Cyclobenzaprine HCl (Flexeril) 5 mg PO BID PRN PRN Reason: Muscle Spasm Last Admin: 05/13/20 20:26 Dose: 5 mg Documented by: Digoxin (Lanoxin) 250 mcg PO DAILY [facility] Last Admin: 05/15/20 08:34 Dose: 250 mcg Documented by: Diltiazem HCl (Cardizem Cd) 120 mg PO DAILY [facility] Last Admin: 05/15/20 08:33 Dose: 120 mg Documented by: Diltiazem HCl (Cardizem Cd) 180 mg PO DAILY [facility] Last Admin: 05/15/20 08:33 Dose: 180 mg Documented by: Docusate Sodium (Colace) 100 mg PO DAILY [facility] Last Admin: 05/15/20 08:30 Dose: 100 mg Documented by: Duloxetine HCl (Cymbalta) 30 mg PO DAILY [facility] Last Admin: 05/15/20 08:31 Dose: 30 mg Documented by: Dutasteride (Avodart) 0.5 mg PO DAILY [facility] Last Admin: 05/15/20 08:29 Dose: 0.5 mg Documented by: Fentanyl (Duragesic) 50 mcg TRDERM Q72H [facility] Last Admin: 05/13/20 15:20 Dose: 50 mcg Documented by: Ferrous Sulfate (Ferrous Sulfate) 325 mg PO DAILY [facility] Last Admin: 05/15/20 08:31 Dose: 325 mg Documented by: Furosemide (Lasix) 40 mg PO DAILY [facility] Last Admin: 05/15/20 08:31 Dose: 40 mg Documented by: Gabapentin (Neurontin) 300 mg PO TID [facility] Last Admin: 05/15/20 06:35 Dose: 300 mg Documented by: Piperacillin Sod/Tazobactam (Sod 3.375 gm/ Sodium Chloride) 50 mls @ 100 mls/hr IV Q8H [facility] Insulin Aspart (Novolog) 0 unit SUBCUT TIDAC [facility]; Protocol Last Admin: 05/15/20 07:31 Dose: 3 units Documented by: Levothyroxine Sodium (Synthroid) 88 mcg PO DAILY [facility] Last Admin: 05/15/20 08:30 Dose: 88 mcg Documented by: Methylprednisolone Sodium Succinate (Solu-Medrol) 40 mg IV Q12H [facility] Last Admin: 05/15/20 08:33 Dose: 40 mg Documented by: Miscellaneous Information (Remove Patch) 1 ea TRDERM Q72H [facility] Morphine Sulfate (Morphine) 4 mg IVPUSH Q3H PRN PRN Reason: Pain Last Admin: 05/15/20 00:16 Dose: 4 mg Documented by: Nystatin (Nystatin Crm) 0 gm TOP BID [facility] Last Admin: 05/15/20 08:43 Dose: 1 applic Documented by: Omeprazole (Omeprazole) 20 mg PO BIDAC [facility] Last Admin: 05/15/20 06:35 Dose: 20 mg Documented by: Ondansetron HCl (Zofran) 4 mg IVPUSH Q4H PRN PRN Reason: Nausea Oxycodone/Acetaminophen (Percocet 325-5 Mg) 1 tab PO Q6H PRN PRN Reason: severe pain Last Admin: 05/15/20 08:27 Dose: 1 tab Documented by: Rosuvastatin Calcium (Crestor) 5 mg PO BEDTIME [facility] Last Admin: 05/14/20 21:03 Dose: 5 mg Documented by: Sodium Chloride (Saline Flush) 2.5 ml FLUSH ASDIRECTED PRN PRN Reason: Keep Vein Open Spironolactone (Aldactone) 25 mg PO DAILY [facility] Last Admin: 05/15/20 08:30 Dose: 25 mg Documented by: Tamsulosin HCl (Flomax) 0.8 mg PO BEDTIME [facility] Last Admin: 05/14/20 21:03 Dose: 0.8 mg Documented by: Vancomycin HCl (Pharmacy To Dose - Vancomycin) 1 dose .XX ASDIRECTED [facility] Discontinued Medications Albuterol/Ipratropium (Duoneb 3.0-0.5 Mg/3 Ml) 3 ml NEB ONETIME ONE Stop: 05/13/20 05:38 Last Admin: 05/13/20 05:53 Dose: 3 ml Documented by: Azithromycin (Zithromax) 500 mg PO Q24H [facility] Last Admin: 05/13/20 08:23 Dose: 500 mg Documented by: Azithromycin (Zithromax) 500 mg PO Q24H [facility] Last Admin: 05/15/20 08:29 Dose: 500 mg Documented by: Fentanyl (Duragesic) 25 mcg TRDERM Q72H [facility] Last Admin: 05/13/20 12:42 Dose: Not Given Documented by: Fentanyl (Duragesic) 25 mcg TRDERM Q72H [facility] Ceftriaxone Sodium/Dextrose 1 (gm/ Premix) 50 mls @ 100 mls/hr IV Q24H [facility] Sodium Chloride (Normal Saline) 1,000 mls @ 100 mls/hr IV Q10H [facility] Last Admin: 05/13/20 09:00 Dose: 100 mls/hr Documented by: Ceftriaxone Sodium/Dextrose 1 (gm/ Premix) 50 mls @ 100 mls/hr IV Q24H [facility] Last Admin: 05/15/20 00:29 Dose: 100 mls/hr Documented by: Iopamidol (Isovue-370 (76%)) 100 ml IVPUSH ONETIME STA Stop: 05/13/20 07:29 Last Admin: 05/13/20 07:29 Dose: 100 ml Documented by: Methylprednisolone Sodium Succinate (Solu-Medrol) 125 mg IV ONETIME ONE Stop: 05/13/20 05:41 Last Admin: 05/13/20 05:57 Dose: 125 mg Documented by: Morphine Sulfate (Morphine) 4 mg IVPUSH ONETIME ONE Stop: 05/13/20 06:43 Last Admin: 05/13/20 07:30 Dose: 4 mg Documented by: Morphine Sulfate (Morphine) 2 mg IVPUSH Q3H PRN PRN Reason: Pain Last Admin: 05/13/20 12:36 Dose: 2 mg Documented by: Morphine Sulfate (Morphine) 3 mg IVPUSH ONETIME ONE Stop: 05/13/20 13:31 Last Admin: 05/13/20 13:29 Dose: 3 mg Documented by: Oxycodone HCl (Oxycodone) 10 mg PO ONETIME ONE Stop: 05/13/20 08:14 Last Admin: 05/13/20 08:23 Dose: 10 mg Documented by: - Exam General: Alert, Oriented Lungs: Clear to Auscultation, Normal Respiratory Effort Cardiovascular: Regular Rate, Regular Rhythm GI/Abdominal Exam: Normal Bowel Sounds, Soft, Non-Tender Extremities: Normal Inspection, Limited Range of Motion. No: Increased Warmth Neurological: No New Focal Deficit, Normal Tone, Strength Equal Bilateral, Reflexes Equal Bilateral Sepsis Event Note - Evaluation Sepsis Screening Result: No Definite Risk - Focused Exam Vital Signs: Vital Signs Temp Pulse Pulse Resp BP BP Pulse Ox 05/15/20 08:34 95 05/15/20 08:33 95 119/54 L 05/15/20 08:00 37.0 C 95 16 119/54 L 95 05/15/20 05:00 05/15/20 04:00 36.2 C 79 16 119/50 L 92 L 05/15/20 00:00 36.7 C 90 17 133/55 L 93 L Pulse Ox 05/15/20 08:34 05/15/20 08:33 05/15/20 08:00 05/15/20 05:00 95 05/15/20 04:00 05/15/20 00:00 Date Exam was Performed: 05/15/20 Time Exam was Performed: 11:16 - Problem List & Annotations (1) CAP (community acquired pneumonia) SNOMED Code(s): 699784001 Code(s): J18.9 - PNEUMONIA, UNSPECIFIED ORGANISM Status: Acute Current Visit: Yes (2) Intractable back pain SNOMED Code(s): 564193015 Code(s): M54.9 - DORSALGIA, UNSPECIFIED Status: Acute Current Visit: Yes (3) Urinary retention SNOMED Code(s): 957659745 Code(s): R33.9 - RETENTION OF URINE, UNSPECIFIED Status: Acute Current Visit: Yes (4) Afib SNOMED Code(s): 31276118 Code(s): I48.91 - UNSPECIFIED ATRIAL FIBRILLATION Status: Chronic Current Visit: Yes Qualifiers: Atrial fibrillation type: unspecified chronic Qualified Code(s): I48.20 - Chronic atrial fibrillation, unspecified; I48.2 - Chronic atrial fibrillation (5) Anemia in chronic illness SNOMED Code(s): 320253616 Code(s): D63.8 - ANEMIA IN OTHER CHRONIC DISEASES CLASSIFIED ELSEWHERE Status: Chronic Current Visit: Yes (6) Anticoagulated SNOMED Code(s): 914112859, 324430760 Code(s): Z79.01 - MCC (CURRENT) USE OF ANTICOAGULANTS Status: Chronic Current Visit: Yes (7) BPH (benign prostatic hyperplasia) SNOMED Code(s): 333691730 Code(s): N40.0 - BENIGN PROSTATIC HYPERPLASIA WITHOUT LOWER URINRY TRACT SYMP Status: Chronic Current Visit: Yes (8) COPD (chronic obstructive pulmonary disease) SNOMED Code(s): 27795344 Code(s): J44.9 - CHRONIC OBSTRUCTIVE PULMONARY DISEASE, UNSPECIFIED Status: Chronic Current Visit: Yes (9) Leucocytosis SNOMED Code(s): 723698025, 404009911 Code(s): D72.829 - ELEVATED WHITE BLOOD CELL COUNT, UNSPECIFIED Status: Acute Current Visit: Yes - Problem List Review Problem List Initiated/Reviewed/Updated: Yes - My Orders Last 24 Hours: My Active Orders 05/15/20 11:15 Pharmacy to Dose - Vancomycin 1 dose .XX ASDIRECTED Piperacillin/Tazobactam [Piperacil-Tazobact] 3.375 gm Sodium Chloride 0.9% [Normal Saline] 50 ml IV Q8H 05/16/20 14:15 Remove Patch 1 ea TRDERM Q72H - Plan Plan:: This 79 year old male admitted with intractable acute on chronic back pain, UTI and CAP 1. Intractable back pain - Acute on chronic - Recently had lumbar imaging showing lumbar stenosis and multi level severe deg enerative disease. - MRI thoracic and cervical to fully evaluate, but patient unable to tolerate lying flat currently - Fentanyl patch in place, 50 mcg, dose was increased - Morphine IV PRN pain. - Unable to use NSAIDs due to anticoagulation - cont Flexeril PRN muscle spasms - Tylenol PRN - Heat and Ice prn - Continue Cymbalta - PT/OT to evaluate and treat 2. UTI: - UC negative, dc Rocephin 3. CAP: - WBC count up, will Roger coverage to vancomycin nd zosyn - Duonebs PRN - Solumedrol due to wheezing and hx COPD - Intermittent oxygen use at home, not all the time per patient report - Encourage IS, CDB 4. COPD: - Continue inhalers and Duonebs - Oxygen to keep sats 88% 5. Atrial fibrillation on chronic anticoagulation/HTN/HLD/CHF - Continue Digoxin and Diltiazem - Continue Eliquis - Continue Statin - Monitor VS. - Strict I/O, daily weights, low Na diet 6. DM Type 2: - Novolog SSI with meals - ADA diet - Hold PO medications for now. VTE prophylaxis: Eliquis Dispo: 2-3 days, may need placement due to back pain and inability to care for himself.
[2020-05-15] MEDS: Piperacillin/Tazobactam 4.5 GM in Sodium Chloride 0.9% 100 ML IV SCH ×2 (12:03→18:17)
[2020-05-15] MEDS: Lactated Ringers 1,000 ML IV SCH (15:48)
[2020-05-15] MEDS ORDERED: Insulin Aspart 100 Units/ML 3 ML Pen SUBCUT ONE (17:30)
[2020-05-15] MEDS: Rosuvastatin 10 MG Tab PO SCH (21:49)
[2020-05-15] MEDS: Tamsulosin 0.4 MG Cap.ER PO SCH (21:52)
[2020-05-15] MEDS ORDERED: fentaNYL 25 MCG/HR Transdermal Patch TRDERM SCH (22:00)
[2020-05-16] MEDS: Piperacillin/Tazobactam 4.5 GM in Sodium Chloride 0.9% 100 ML IV SCH ×5 (00:03→23:35)
[2020-05-16] MEDS: Albuterol/Ipratropium 3.0-0.5 MG/3 ML Neb Soln NEB SCH ×5 (01:09→23:35)
[2020-05-16] MEDS: Lactated Ringers 1,000 ML IV SCH (01:10)
[2020-05-16] MEDS: Acetaminophen/oxyCODONE 325-5 MG Tab PO PRN ×2 (05:06→12:27)
[2020-05-16] MEDS: Gabapentin 300 MG Cap PO SCH ×3 (05:06→21:54)
[2020-05-16 06:17] LABS: BLOOD UREA NITROGEN,BUN 19 mg/dL (7.0-18.0); CARBON DIOXIDE,CO2 28.1 mmol/L (21.0-32.0); CHLORIDE,CL 100 mmol/L (98-107); GLUCOSE RANDOM 307 mg/dL (74-106); POTASSIUM,K 4.5 mmol/L (3.5-5.1); SODIUM,NA 134 mmol/L (136-148)
[2020-05-16] MEDS: Cyclobenzaprine 5 MG Tab PO PRN (06:58)
[2020-05-16] MEDS: Omeprazole 20 MG Cap.CR PO SCH ×2 (06:58→17:45)
[2020-05-16] MEDS: Morphine 4 MG/ML Syringe IVPUSH PRN (07:09)
[2020-05-16] MEDS: Insulin Aspart 100 Units/ML 3 ML Pen SUBCUT SCH ×3 (07:32→17:45)
[2020-05-16] MEDS: Levothyroxine 88 MCG Tab PO SCH (08:50)
[2020-05-16] MEDS: Diltiazem 120 MG Cap.CD PO SCH (08:50)
[2020-05-16] MEDS: DULoxetine 30 MG Cap PO SCH (08:50)
[2020-05-16] MEDS: Ferrous Sulfate 325 MG Tab PO SCH (08:50)
[2020-05-16] MEDS: Allopurinol 100 MG Tab PO SCH (08:51)
[2020-05-16] MEDS: Digoxin 250 MCG Tab PO SCH (08:52)
[2020-05-16] MEDS: Dutasteride 0.5 MG Cap PO SCH (08:52)
[2020-05-16] MEDS: Docusate Sodium 100 MG Cap PO SCH (08:52)
[2020-05-16] MEDS: Spironolactone 25 MG Tab PO SCH (08:52)
[2020-05-16] MEDS: Diltiazem 180 MG Cap.CD PO SCH (08:52)
[2020-05-16] MEDS: Apixaban 5 MG Tab PO SCH ×2 (08:52→20:23)
[2020-05-16] MEDS: methylPREDNISolone Sodium Succinate 40 MG/1 ML SDV IV SCH (08:53)
[2020-05-16] MEDS: Nystatin Crm 30 GM Tube TOP SCH ×2 (09:25→20:24)
--- NOTE | 2020-05-16 11:13 | PCM.PN ---
<Gladis Villalta M - Last Filed: 05/16/20 11:39> - General Info Date of Service: 05/16/20 Admission Dx/Problem (Free Text): Admission Diagnosis/Problem Admission Diagnosis/Problem CAP, intractable back pain Subjective Update: Feeling improved today. No chest pain. breathing much improved. Urinary retention good with clifton. Back pain improving. No new neurological concerns. Functional Status: Reports: Pain Controlled, Tolerating Diet, Ambulating - Review of Systems General: Reports: Malaise (improving though, just tired today) Pulmonary: Reports: No Symptoms. Denies: Shortness of Breath, Cough, Sputum Cardiovascular: Reports: No Symptoms. Denies: Chest Pain, Lightheadedness Gastrointestinal: Reports: No Symptoms. Denies: Abdominal Pain, Nausea, Vomiting Genitourinary: Reports: No Symptoms. Denies: Dysuria, Frequency Musculoskeletal: Reports: Back Pain (improving) Neurological: Reports: No Symptoms Psychiatric: Reports: No Symptoms - Patient Data Vitals - Most Recent: Last Vital Signs Temp 98.3 F 05/16/20 08:00 Pulse 101 H 05/16/20 08:52 Resp 17 05/16/20 08:00 BP 124/69 05/16/20 08:50 Pulse Ox 91 L 05/16/20 08:00 Weight - Most Recent: 92.578 kg I&O - Last 24 Hours: Intake & Output 05/15/20 05/16/20 05/16/20 22:59 06:59 14:59 Intake Total 2440 3178 Output Total 1700 2350 Balance 740 828 Lab Results Last 24 Hours: Laboratory Results - last 24 hr 05/15/20 05/15/20 05/16/20 Range/Units 11:29 17:05 05:40 WBC 10.49 (4.0-11.0) K/uL RBC 4.09 L (4.50-5.90) M/uL Hgb 8.4 L (13.0-17.0) g/dL Hct 29.7 L (38.0-50.0) % MCV 72.6 L (80.0-98.0) fL MCH 20.5 L (27.0-32.0) pg MCHC 28.3 L (31.0-37.0) g/dL RDW Std Deviation 45.7 (28.0-62.0) fl RDW Coeff of Trixie 18 H (11.0-15.0) % Plt Count 312 (150-400) K/uL MPV 10.20 (7.40-12.00) fL Neut % (Auto) 90.7 H (48.0-80.0) % Lymph % (Auto) 5.1 L (16.0-40.0) % Daggett % (Auto) 3.9 (0.0-15.0) % Eos % (Auto) 0.0 (0.0-7.0) % Baso % (Auto) 0.3 (0.0-1.5) % Neut # (Auto) 9.5 H (1.4-5.7) K/uL Lymph # (Auto) 0.5 L (0.6-2.4) K/uL Daggett # (Auto) 0.4 (0.0-0.8) K/uL Eos # (Auto) 0.0 (0.0-0.7) K/uL Baso # (Auto) 0.0 (0.0-0.1) K/uL Sodium (136-148) mmol/L Potassium (3.5-5.1) mmol/L Chloride (98-107) mmol/L Carbon Dioxide (21.0-32.0) mmol/L BUN (7.0-18.0) mg/dL Creatinine (0.8-1.3) mg/dL Est Cr Clr Drug Dosing mL/min Estimated GFR (MDRD) ml/min Glucose (74-106) mg/dL POC Glucose 254 H 437 H (60-110) mg/dL Calcium (8.5-10.1) mg/dL Magnesium (1.8-2.4) mg/dL 05/16/20 05/16/20 Range/Units 05:40 06:22 WBC (4.0-11.0) K/uL RBC (4.50-5.90) M/uL Hgb (13.0-17.0) g/dL Hct (38.0-50.0) % MCV (80.0-98.0) fL MCH (27.0-32.0) pg MCHC (31.0-37.0) g/dL RDW Std Deviation (28.0-62.0) fl RDW Coeff of Trixie (11.0-15.0) % Plt Count (150-400) K/uL MPV (7.40-12.00) fL Neut % (Auto) (48.0-80.0) % Lymph % (Auto) (16.0-40.0) % Daggett % (Auto) (0.0-15.0) % Eos % (Auto) (0.0-7.0) % Baso % (Auto) (0.0-1.5) % Neut # (Auto) (1.4-5.7) K/uL Lymph # (Auto) (0.6-2.4) K/uL Daggett # (Auto) (0.0-0.8) K/uL Eos # (Auto) (0.0-0.7) K/uL Baso # (Auto) (0.0-0.1) K/uL Sodium 134 L (136-148) mmol/L Potassium 4.5 (3.5-5.1) mmol/L Chloride 100 (98-107) mmol/L Carbon Dioxide 28.1 (21.0-32.0) mmol/L BUN 19 H (7.0-18.0) mg/dL Creatinine 0.8 (0.8-1.3) mg/dL Est Cr Clr Drug Dosing 87.39 mL/min Estimated GFR (MDRD) > 60.0 ml/min Glucose 307 H (74-106) mg/dL POC Glucose 289 H (60-110) mg/dL Calcium 8.4 L (8.5-10.1) mg/dL Magnesium 1.8 (1.8-2.4) mg/dL Johan Results Last 24 Hours: Microbiology 05/13/20 10:15 Aerobic Blood Culture - Preliminary Blood - Venous - Lab Draw NO GROWTH AFTER 3 DAYS Anaerobic Blood Culture - Preliminary NO GROWTH AFTER 3 DAYS 05/13/20 10:12 Aerobic Blood Culture - Preliminary Blood - Venous NO GROWTH AFTER 3 DAYS Anaerobic Blood Culture - Preliminary NO GROWTH AFTER 3 DAYS 05/13/20 10:30 Urine Culture - Final Urine, Clifton Cath ([place]) No Growth Med Orders - Current: Current Medications Acetaminophen (Tylenol) 650 mg PO Q4H PRN PRN Reason: Pain (Mild 1-3)/fever Albuterol/Ipratropium (Duoneb 3.0-0.5 Mg/3 Ml) 3 ml NEB Q4HRRT [facility] Last Admin: 05/16/20 09:46 Dose: 3 ml Documented by: Allopurinol (Zyloprim) 100 mg PO DAILY [facility] Last Admin: 05/16/20 08:51 Dose: 100 mg Documented by: Apixaban (Eliquis) 5 mg PO BID [facility] Last Admin: 05/16/20 08:52 Dose: 5 mg Documented by: Cyclobenzaprine HCl (Flexeril) 5 mg PO BID PRN PRN Reason: Muscle Spasm Last Admin: 05/16/20 06:58 Dose: 5 mg Documented by: Digoxin (Lanoxin) 250 mcg PO DAILY [facility] Last Admin: 05/16/20 08:52 Dose: 250 mcg Documented by: Diltiazem HCl (Cardizem Cd) 120 mg PO DAILY [facility] Last Admin: 05/16/20 08:50 Dose: 120 mg Documented by: Diltiazem HCl (Cardizem Cd) 180 mg PO DAILY [facility] Last Admin: 05/16/20 08:52 Dose: 180 mg Documented by: Docusate Sodium (Colace) 100 mg PO DAILY [facility] Last Admin: 05/16/20 08:52 Dose: 100 mg Documented by: Duloxetine HCl (Cymbalta) 30 mg PO DAILY [facility] Last Admin: 05/16/20 08:50 Dose: 30 mg Documented by: Dutasteride (Avodart) 0.5 mg PO DAILY [facility] Last Admin: 05/16/20 08:52 Dose: 0.5 mg Documented by: Fentanyl (Duragesic) 50 mcg TRDERM Q72H [facility] Last Admin: 05/13/20 15:20 Dose: 50 mcg Documented by: Ferrous Sulfate (Ferrous Sulfate) 325 mg PO DAILY [facility] Last Admin: 05/16/20 08:50 Dose: 325 mg Documented by: Gabapentin (Neurontin) 300 mg PO TID [facility] Last Admin: 05/16/20 05:06 Dose: 300 mg Documented by: Piperacillin Sod/Tazobactam (Sod 4.5 gm/ Sodium Chloride) 100 mls @ 200 mls/hr IV Q6H [facility] Last Admin: 05/16/20 05:07 Dose: 200 mls/hr Documented by: Lactated Ringer's (Ringers, Lactated) 1,000 mls @ 125 mls/hr IV ASDIRECTED [facility] Last Admin: 05/16/20 01:10 Dose: 125 mls/hr Documented by: Vancomycin HCl 1.5 gm/ Premix 300 mls @ 200 mls/hr IV Q12H [facility] Last Admin: 05/16/20 00:49 Dose: 200 mls/hr Documented by: Insulin Aspart (Novolog) 0 unit SUBCUT TIDAC [facility]; Protocol Last Admin: 05/16/20 07:32 Dose: 9 units Documented by: Levothyroxine Sodium (Synthroid) 88 mcg PO DAILY [facility] Last Admin: 05/16/20 08:50 Dose: 88 mcg Documented by: Miscellaneous Information (Remove Patch) 1 ea TRDERM Q72H [facility] Morphine Sulfate (Morphine) 4 mg IVPUSH Q3H PRN PRN Reason: Pain Last Admin: 05/16/20 07:09 Dose: 4 mg Documented by: Nystatin (Nystatin Crm) 0 gm TOP BID [facility] Last Admin: 05/16/20 09:25 Dose: 1 applic Documented by: Omeprazole (Omeprazole) 20 mg PO BIDAC [facility] Last Admin: 05/16/20 06:58 Dose: 20 mg Documented by: Ondansetron HCl (Zofran) 4 mg IVPUSH Q4H PRN PRN Reason: Nausea Oxycodone/Acetaminophen (Percocet 325-5 Mg) 1 tab PO Q6H PRN PRN Reason: severe pain Last Admin: 05/16/20 05:06 Dose: 1 tab Documented by: Rosuvastatin Calcium (Crestor) 5 mg PO BEDTIME [facility] Last Admin: 05/15/20 21:49 Dose: 5 mg Documented by: Sodium Chloride (Saline Flush) 2.5 ml FLUSH ASDIRECTED PRN PRN Reason: Keep Vein Open Spironolactone (Aldactone) 25 mg PO DAILY [facility] Last Admin: 05/16/20 08:52 Dose: 25 mg Documented by: Tamsulosin HCl (Flomax) 0.8 mg PO BEDTIME [facility] Last Admin: 05/15/20 21:52 Dose: 0.8 mg Documented by: Vancomycin HCl (Pharmacy To Dose - Vancomycin) 1 dose .XX ASDIRECTED [facility] Discontinued Medications Albuterol/Ipratropium (Duoneb 3.0-0.5 Mg/3 Ml) 3 ml NEB ONETIME ONE Stop: 05/13/20 05:38 Last Admin: 05/13/20 05:53 Dose: 3 ml Documented by: Azithromycin (Zithromax) 500 mg PO Q24H [facility] Last Admin: 05/13/20 08:23 Dose: 500 mg Documented by: Azithromycin (Zithromax) 500 mg PO Q24H [facility] Last Admin: 05/15/20 08:29 Dose: 500 mg Documented by: Fentanyl (Duragesic) 25 mcg TRDERM Q72H [facility] Last Admin: 05/13/20 12:42 Dose: Not Given Documented by: Fentanyl (Duragesic) 25 mcg TRDERM Q72H [facility] Furosemide (Lasix) 40 mg PO DAILY [facility] Last Admin: 05/15/20 08:31 Dose: 40 mg Documented by: Ceftriaxone Sodium/Dextrose 1 (gm/ Premix) 50 mls @ 100 mls/hr IV Q24H [facility] Sodium Chloride (Normal Saline) 1,000 mls @ 100 mls/hr IV Q10H [facility] Last Admin: 05/13/20 09:00 Dose: 100 mls/hr Documented by: Ceftriaxone Sodium/Dextrose 1 (gm/ Premix) 50 mls @ 100 mls/hr IV Q24H [facility] Last Admin: 05/15/20 00:29 Dose: 100 mls/hr Documented by: Insulin Aspart (Novolog) 0 unit SUBCUT TIDAC [facility]; Protocol Last Admin: 05/15/20 18:17 Dose: Not Given Documented by: Insulin Aspart (Novolog) 10 unit SUBCUT ONETIME ONE Stop: 05/15/20 17:31 Last Admin: 05/15/20 17:37 Dose: 10 units Documented by: Iopamidol (Isovue-370 (76%)) 100 ml IVPUSH ONETIME STA Stop: 05/13/20 07:29 Last Admin: 05/13/20 07:29 Dose: 100 ml Documented by: Methylprednisolone Sodium Succinate (Solu-Medrol) 125 mg IV ONETIME ONE Stop: 05/13/20 05:41 Last Admin: 05/13/20 05:57 Dose: 125 mg Documented by: Methylprednisolone Sodium Succinate (Solu-Medrol) 40 mg IV Q12H [facility] Last Admin: 05/16/20 08:53 Dose: 40 mg Documented by: Morphine Sulfate (Morphine) 4 mg IVPUSH ONETIME ONE Stop: 05/13/20 06:43 Last Admin: 05/13/20 07:30 Dose: 4 mg Documented by: Morphine Sulfate (Morphine) 2 mg IVPUSH Q3H PRN PRN Reason: Pain Last Admin: 05/13/20 12:36 Dose: 2 mg Documented by: Morphine Sulfate (Morphine) 3 mg IVPUSH ONETIME ONE Stop: 05/13/20 13:31 Last Admin: 05/13/20 13:29 Dose: 3 mg Documented by: Oxycodone HCl (Oxycodone) 10 mg PO ONETIME ONE Stop: 05/13/20 08:14 Last Admin: 05/13/20 08:23 Dose: 10 mg Documented by: - Exam General: Alert, Oriented, Cooperative, No Acute Distress Lungs: Clear to Auscultation, Normal Respiratory Effort. No: Decreased Breath Sounds, Rhonchi, Wheezing Cardiovascular: Regular Rate, Irregular Rhythm GI/Abdominal Exam: Normal Bowel Sounds, Soft, Non-Tender, No Organomegaly Back Exam: Normal Inspection, Full Range of Motion Extremities: Normal Inspection, Normal Range of Motion, Non-Tender, No Pedal Edema Neurological: No New Focal Deficit, Strength Equal Bilateral Psy/Mental Status: Alert, Normal Affect, Normal Mood Sepsis Event Note - Evaluation Sepsis Screening Result: No Definite Risk - Focused Exam Vital Signs: Vital Signs Temp Pulse Pulse Resp BP BP Pulse Ox 05/16/20 08:52 101 H 05/16/20 08:50 101 H 124/69 05/16/20 08:00 98.3 F 101 H 17 124/69 91 L 05/16/20 04:00 98.2 F 78 17 117/70 94 L 05/16/20 00:08 97.7 F 87 17 133/79 94 L Date Exam was Performed: 05/16/20 Time Exam was Performed: 11:39 - Problem List & Annotations (1) Intractable back pain SNOMED Code(s): 523122164 Code(s): M54.9 - DORSALGIA, UNSPECIFIED Status: Acute Current Visit: Yes (2) UTI, Urinary tract infectious disease SNOMED Code(s): 42636804 Code(s): N39.0 - URINARY TRACT INFECTION, SITE NOT SPECIFIED Status: Acute Current Visit: No (3) CAP (community acquired pneumonia) SNOMED Code(s): 220812702 Code(s): J18.9 - PNEUMONIA, UNSPECIFIED ORGANISM Status: Acute Current Visit: Yes (4) Urinary retention SNOMED Code(s): 854710788 Code(s): R33.9 - RETENTION OF URINE, UNSPECIFIED Status: Acute Current Visit: Yes (5) Afib SNOMED Code(s): 03030887 Code(s): I48.91 - UNSPECIFIED ATRIAL FIBRILLATION Status: Chronic Current Visit: Yes Qualifiers: Atrial fibrillation type: unspecified chronic Qualified Code(s): I48.20 - Chronic atrial fibrillation, unspecified; I48.2 - Chronic atrial fibrillation (6) Systolic heart failure SNOMED Code(s): 576507449 Code(s): I50.20 - UNSPECIFIED SYSTOLIC (CONGESTIVE) HEART FAILURE Status: Chronic Current Visit: Yes Qualifiers: Heart failure chronicity: chronic Qualified Code(s): I50.22 - Chronic systolic (congestive) heart failure (7) Anticoagulated SNOMED Code(s): 032570555, 538305562 Code(s): Z79.01 - DOOR SERVICEM[employer] (CURRENT) USE OF ANTICOAGULANTS Status: Chronic Current Visit: Yes (8) Rheumatoid arthritis SNOMED Code(s): 06115974 Code(s): M06.9 - RHEUMATOID ARTHRITIS, UNSPECIFIED Status: Chronic Current Visit: Yes (9) Fibromyalgia SNOMED Code(s): 988267650 Code(s): M79.7 - FIBROMYALGIA Status: Chronic Current Visit: Yes (10) COPD (chronic obstructive pulmonary disease) SNOMED Code(s): 77698263 Code(s): J44.9 - CHRONIC OBSTRUCTIVE PULMONARY DISEASE, UNSPECIFIED Status: Chronic Current Visit: Yes (11) Oxygen dependent SNOMED Code(s): 866187787213 Code(s): Z99.81 - DEPENDENCE ON SUPPLEMENTAL OXYGEN Status: Chronic Current Visit: Yes (12) ALF (obstructive sleep apnea) SNOMED Code(s): 37653119 Code(s): G47.33 - OBSTRUCTIVE SLEEP APNEA (ADULT) (PEDIATRIC) Status: Chronic Current Visit: Yes (13) Hypothyroid SNOMED Code(s): 96605325 Code(s): E03.9 - HYPOTHYROIDISM, UNSPECIFIED Status: Chronic Current Visit: Yes (14) BPH (benign prostatic hyperplasia) SNOMED Code(s): 187842642 Code(s): N40.0 - BENIGN PROSTATIC HYPERPLASIA WITHOUT LOWER URINRY TRACT SYMP Status: Chronic Current Visit: Yes (15) Anemia in chronic illness SNOMED Code(s): 273077606 Code(s): D63.8 - ANEMIA IN OTHER CHRONIC DISEASES CLASSIFIED ELSEWHERE Status: Chronic Current Visit: Yes (16) HTN (hypertension) SNOMED Code(s): 99946343 Code(s): I10 - ESSENTIAL (PRIMARY) HYPERTENSION Status: Chronic Current Visit: Yes (17) HLD (hyperlipidemia) SNOMED Code(s): 80810495 Code(s): E78.5 - HYPERLIPIDEMIA, UNSPECIFIED Status: Chronic Current Visit: Yes (18) Sciatica SNOMED Code(s): 69315037 Code(s): M54.30 - SCIATICA, UNSPECIFIED SIDE Status: Chronic Current Visit: Yes Qualifiers: Laterality: bilateral Qualified Code(s): M54.31 - Sciatica, right side; M54.32 - Sciatica, left side (19) Spinal stenosis of lumbar region with neurogenic claudication SNOMED Code(s): 60408158, 254594931 Code(s): M48.062 - SPINAL STENOSIS, LUMBAR REGION WITH NEUROGENIC CLAUDICATION Status: Chronic Current Visit: Yes (20) DM type 2 (diabetes mellitus, type 2) SNOMED Code(s): 71547307 Code(s): E11.9 - TYPE 2 DIABETES MELLITUS WITHOUT COMPLICATIONS Status: Chronic Current Visit: Yes Qualifiers: Diabetes mellitus intermediate card tender insulin use: without longterm use - Problem List Review Problem List Initiated/Reviewed/Updated: Yes - My Orders Last 24 Hours: My Active Orders 05/16/20 08:09 Communication Order [RC] ROUTINE 05/16/20 08:53 OT Evaluation and Treatment [CONS] Routine - Plan Plan:: This 79 year old male admitted with intractable acute on chronic back pain, UTI and CAP 1. Intractable back pain - Acute on chronic - Fentanyl patch 50 mcg, - Morphine IV PRN pain. - cont Flexeril PRN muscle spasms - Tylenol PRN - Heat and Ice prn - Continue Cymbalta - PT/OT to evaluate and treat 2. CAP: - Leukocytosis improved. Stop Vancomycin. Continue Zosyn and Add Azithromycin - Duonebs PRN - Solumedrol dc, Prednisone 40 mg daily. - Intermittent oxygen use at home, not all the time per patient report - Encourage IS, CDB 3. COPD: - Continue inhalers and Duonebs - Oxygen to keep sats 88% 4. Atrial fibrillation on chronic anticoagulation/HTN/HLD/CHF - Continue Digoxin and Diltiazem - Continue Eliquis - Continue Statin - Monitor VS. - Strict I/O, daily weights, low Na diet 5. DM Type 2: - BS elevated with steroid use, continue to monitor with steroid dc - Novolog SSI with meals - ADA diet - Hold PO medications for now. VTE prophylaxis: Eliquis Dispo: 2-3 days <Zay Guerra - Last Filed: 05/16/20 19:07> - Patient Data Vitals - Most Recent: Last Vital Signs Temp 36.9 C 05/16/20 15:36 Pulse 73 05/16/20 15:36 Resp 16 05/16/20 15:36 BP 109/63 05/16/20 15:36 Pulse Ox 93 L 05/16/20 15:36 I&O - Last 24 Hours: Intake & Output 05/16/20 05/16/20 05/16/20 06:59 14:59 22:59 Intake Total 3178 1367 Output Total 2350 2000 Balance 828 -633 Lab Results Last 24 Hours: Laboratory Results - last 24 hr 05/16/20 05/16/20 05/16/20 Range/Units 05:40 05:40 06:22 WBC 10.49 (4.0-11.0) K/uL RBC 4.09 L (4.50-5.90) M/uL Hgb 8.4 L (13.0-17.0) g/dL Hct 29.7 L (38.0-50.0) % MCV 72.6 L (80.0-98.0) fL MCH 20.5 L (27.0-32.0) pg MCHC 28.3 L (31.0-37.0) g/dL RDW Std Deviation 45.7 (28.0-62.0) fl RDW Coeff of Trixie 18 H (11.0-15.0) % Plt Count 312 (150-400) K/uL MPV 10.20 (7.40-12.00) fL Neut % (Auto) 90.7 H (48.0-80.0) % Lymph % (Auto) 5.1 L (16.0-40.0) % Daggett % (Auto) 3.9 (0.0-15.0) % Eos % (Auto) 0.0 (0.0-7.0) % Baso % (Auto) 0.3 (0.0-1.5) % Neut # (Auto) 9.5 H (1.4-5.7) K/uL Lymph # (Auto) 0.5 L (0.6-2.4) K/uL Daggett # (Auto) 0.4 (0.0-0.8) K/uL Eos # (Auto) 0.0 (0.0-0.7) K/uL Baso # (Auto) 0.0 (0.0-0.1) K/uL Sodium 134 L (136-148) mmol/L Potassium 4.5 (3.5-5.1) mmol/L Chloride 100 (98-107) mmol/L Carbon Dioxide 28.1 (21.0-32.0) mmol/L BUN 19 H (7.0-18.0) mg/dL Creatinine 0.8 (0.8-1.3) mg/dL Est Cr Clr Drug Dosing 87.39 mL/min Estimated GFR (MDRD) > 60.0 ml/min Glucose 307 H (74-106) mg/dL POC Glucose 289 H (60-110) mg/dL Calcium 8.4 L (8.5-10.1) mg/dL Magnesium 1.8 (1.8-2.4) mg/dL 05/16/20 05/16/20 Range/Units 11:55 17:43 WBC (4.0-11.0) K/uL RBC (4.50-5.90) M/uL Hgb (13.0-17.0) g/dL Hct (38.0-50.0) % MCV (80.0-98.0) fL MCH (27.0-32.0) pg MCHC (31.0-37.0) g/dL RDW Std Deviation (28.0-62.0) fl RDW Coeff of Trixie (11.0-15.0) % Plt Count (150-400) K/uL MPV (7.40-12.00) fL Neut % (Auto) (48.0-80.0) % Lymph % (Auto) (16.0-40.0) % Daggett % (Auto) (0.0-15.0) % Eos % (Auto) (0.0-7.0) % Baso % (Auto) (0.0-1.5) % Neut # (Auto) (1.4-5.7) K/uL Lymph # (Auto) (0.6-2.4) K/uL Daggett # (Auto) (0.0-0.8) K/uL Eos # (Auto) (0.0-0.7) K/uL Baso # (Auto) (0.0-0.1) K/uL Sodium (136-148) mmol/L Potassium (3.5-5.1) mmol/L Chloride (98-107) mmol/L Carbon Dioxide (21.0-32.0) mmol/L BUN (7.0-18.0) mg/dL Creatinine (0.8-1.3) mg/dL Est Cr Clr Drug Dosing mL/min Estimated GFR (MDRD) ml/min Glucose (74-106) mg/dL POC Glucose 231 H 324 H (60-110) mg/dL Calcium (8.5-10.1) mg/dL Magnesium (1.8-2.4) mg/dL Johan Results Last 24 Hours: Microbiology 05/13/20 10:15 Aerobic Blood Culture - Preliminary Blood - Venous - Lab Draw NO GROWTH AFTER 3 DAYS Anaerobic Blood Culture - Preliminary NO GROWTH AFTER 3 DAYS 05/13/20 10:12 Aerobic Blood Culture - Preliminary Blood - Venous NO GROWTH AFTER 3 DAYS Anaerobic Blood Culture - Preliminary NO GROWTH AFTER 3 DAYS Med Orders - Current: Current Medications Acetaminophen (Tylenol) 650 mg PO Q4H PRN PRN Reason: Pain (Mild 1-3)/fever Albuterol/Ipratropium (Duoneb 3.0-0.5 Mg/3 Ml) 3 ml NEB Q6HRRT [facility] Last Admin: 05/16/20 16:59 Dose: 3 ml Documented by: Allopurinol (Zyloprim) 100 mg PO DAILY [facility] Last Admin: 05/16/20 08:51 Dose: 100 mg Documented by: Apixaban (Eliquis) 5 mg PO BID [facility] Last Admin: 05/16/20 08:52 Dose: 5 mg Documented by: Azithromycin (Zithromax) 500 mg PO Q24H [facility] Last Admin: 05/16/20 12:17 Dose: 500 mg Documented by: Cyclobenzaprine HCl (Flexeril) 5 mg PO BID PRN PRN Reason: Muscle Spasm Last Admin: 05/16/20 06:58 Dose: 5 mg Documented by: Digoxin (Lanoxin) 250 mcg PO DAILY [facility] Last Admin: 05/16/20 08:52 Dose: 250 mcg Documented by: Diltiazem HCl (Cardizem Cd) 120 mg PO DAILY [facility] Last Admin: 05/16/20 08:50 Dose: 120 mg Documented by: Diltiazem HCl (Cardizem Cd) 180 mg PO DAILY [facility] Last Admin: 05/16/20 08:52 Dose: 180 mg Documented by: Docusate Sodium (Colace) 100 mg PO DAILY [facility] Last Admin: 05/16/20 08:52 Dose: 100 mg Documented by: Duloxetine HCl (Cymbalta) 30 mg PO DAILY [facility] Last Admin: 05/16/20 08:50 Dose: 30 mg Documented by: Dutasteride (Avodart) 0.5 mg PO DAILY [facility] Last Admin: 05/16/20 08:52 Dose: 0.5 mg Documented by: Fentanyl (Duragesic) 50 mcg TRDERM Q72H [facility] Last Admin: 05/16/20 14:37 Dose: 50 mcg Documented by: Ferrous Sulfate (Ferrous Sulfate) 325 mg PO DAILY [facility] Last Admin: 05/16/20 08:50 Dose: 325 mg Documented by: Gabapentin (Neurontin) 300 mg PO TID [facility] Last Admin: 05/16/20 14:01 Dose: 300 mg Documented by: Piperacillin Sod/Tazobactam (Sod 4.5 gm/ Sodium Chloride) 100 mls @ 200 mls/hr IV Q6H [facility] Last Admin: 05/16/20 17:48 Dose: 200 mls/hr Documented by: Insulin Aspart (Novolog) 0 unit SUBCUT TIDAC [facility]; Protocol Last Admin: 05/16/20 17:45 Dose: 12 units Documented by: Levothyroxine Sodium (Synthroid) 88 mcg PO DAILY [facility] Last Admin: 05/16/20 08:50 Dose: 88 mcg Documented by: Miscellaneous Information (Remove Patch) 1 ea TRDERM Q72H [facility] Last Admin: 05/16/20 14:36 Dose: 1 ea Documented by: Nystatin (Nystatin Crm) 0 gm TOP BID [facility] Last Admin: 05/16/20 09:25 Dose: 1 applic Documented by: Omeprazole (Omeprazole) 20 mg PO BIDAC [facility] Last Admin: 05/16/20 17:45 Dose: 20 mg Documented by: Ondansetron HCl (Zofran) 4 mg IVPUSH Q4H PRN PRN Reason: Nausea Oxycodone/Acetaminophen (Percocet 325-5 Mg) 1 tab PO Q4H PRN PRN Reason: severe pain Prednisone (Prednisone) 40 mg PO WITHBREAKFAST [facility] Rosuvastatin Calcium (Crestor) 5 mg PO BEDTIME [facility] Last Admin: 05/15/20 21:49 Dose: 5 mg Documented by: Sodium Chloride (Saline Flush) 2.5 ml FLUSH ASDIRECTED PRN PRN Reason: Keep Vein Open Spironolactone (Aldactone) 25 mg PO DAILY [facility] Last Admin: 05/16/20 08:52 Dose: 25 mg Documented by: Tamsulosin HCl (Flomax) 0.8 mg PO BEDTIME [facility] Last Admin: 05/15/20 21:52 Dose: 0.8 mg Documented by: Discontinued Medications Albuterol/Ipratropium (Duoneb 3.0-0.5 Mg/3 Ml) 3 ml NEB ONETIME ONE Stop: 05/13/20 05:38 Last Admin: 05/13/20 05:53 Dose: 3 ml Documented by: Albuterol/Ipratropium (Duoneb 3.0-0.5 Mg/3 Ml) 3 ml NEB Q4HRRT [facility] Last Admin: 05/16/20 09:46 Dose: 3 ml Documented by: Azithromycin (Zithromax) 500 mg PO Q24H [facility] Last Admin: 05/13/20 08:23 Dose: 500 mg Documented by: Azithromycin (Zithromax) 500 mg PO Q24H [facility] Last Admin: 05/15/20 08:29 Dose: 500 mg Documented by: Fentanyl (Duragesic) 25 mcg TRDERM Q72H [facility] Last Admin: 05/13/20 12:42 Dose: Not Given Documented by: Fentanyl (Duragesic) 25 mcg TRDERM Q72H [facility] Furosemide (Lasix) 40 mg PO DAILY [facility] Last Admin: 05/15/20 08:31 Dose: 40 mg Documented by: Ceftriaxone Sodium/Dextrose 1 (gm/ Premix) 50 mls @ 100 mls/hr IV Q24H [facility] Sodium Chloride (Normal Saline) 1,000 mls @ 100 mls/hr IV Q10H [facility] Last Admin: 05/13/20 09:00 Dose: 100 mls/hr Documented by: Ceftriaxone Sodium/Dextrose 1 (gm/ Premix) 50 mls @ 100 mls/hr IV Q24H [facility] Last Admin: 05/15/20 00:29 Dose: 100 mls/hr Documented by: Lactated Ringer's (Ringers, Lactated) 1,000 mls @ 125 mls/hr IV ASDIRECTED [facility] Last Admin: 05/16/20 01:10 Dose: 125 mls/hr Documented by: Vancomycin HCl 1.5 gm/ Premix 300 mls @ 200 mls/hr IV Q12H [facility] Last Admin: 05/16/20 00:49 Dose: 200 mls/hr Documented by: Insulin Aspart (Novolog) 0 unit SUBCUT TIDAC [facility]; Protocol Last Admin: 05/15/20 18:17 Dose: Not Given Documented by: Insulin Aspart (Novolog) 10 unit SUBCUT ONETIME ONE Stop: 05/15/20 17:31 Last Admin: 05/15/20 17:37 Dose: 10 units Documented by: Iopamidol ([id number] (76%)) 100 ml IVPUSH ONETIME STA Stop: 05/13/20 07:29 Last Admin: 05/13/20 07:29 Dose: 100 ml Documented by: Methylprednisolone Sodium Succinate (Solu-Medrol) 125 mg IV ONETIME ONE Stop: 05/13/20 05:41 Last Admin: 05/13/20 05:57 Dose: 125 mg Documented by: Methylprednisolone Sodium Succinate (Solu-Medrol) 40 mg IV Q12H [facility] Last Admin: 05/16/20 08:53 Dose: 40 mg Documented by: Morphine Sulfate (Morphine) 4 mg IVPUSH ONETIME ONE Stop: 05/13/20 06:43 Last Admin: 05/13/20 07:30 Dose: 4 mg Documented by: Morphine Sulfate (Morphine) 2 mg IVPUSH Q3H PRN PRN Reason: Pain Last Admin: 05/13/20 12:36 Dose: 2 mg Documented by: Morphine Sulfate (Morphine) 3 mg IVPUSH ONETIME ONE Stop: 05/13/20 13:31 Last Admin: 05/13/20 13:29 Dose: 3 mg Documented by: Morphine Sulfate (Morphine) 4 mg IVPUSH Q3H PRN PRN Reason: Pain Last Admin: 05/16/20 07:09 Dose: 4 mg Documented by: Oxycodone HCl (Oxycodone) 10 mg PO ONETIME ONE Stop: 05/13/20 08:14 Last Admin: 05/13/20 08:23 Dose: 10 mg Documented by: Oxycodone/Acetaminophen (Percocet 325-5 Mg) 1 tab PO Q6H PRN PRN Reason: severe pain Last Admin: 05/16/20 12:27 Dose: 1 tab Documented by: Vancomycin HCl (Pharmacy To Dose - Vancomycin) 1 dose .XX ASDIRECTED [facility] Sepsis Event Note - Focused Exam Vital Signs: Vital Signs Temp Pulse Pulse Resp BP BP BP 05/16/20 15:36 36.9 C 73 16 109/63 05/16/20 13:45 102/64 05/16/20 12:00 37 C 66 16 05/16/20 08:52 101 H 05/16/20 08:50 101 H 124/69 05/16/20 08:00 36.8 C 101 H 17 124/69 Pulse Ox 05/16/20 15:36 93 L 05/16/20 13:45 05/16/20 12:00 93 L 05/16/20 08:52 05/16/20 08:50 05/16/20 08:00 91 L Date Exam was Performed: 05/16/20 Time Exam was Performed: 19:07 - Problem List & Annotations (1) CAP (community acquired pneumonia) SNOMED Code(s): 692479071 Code(s): J18.9 - PNEUMONIA, UNSPECIFIED ORGANISM Status: Acute Current Visit: Yes (2) Intractable back pain SNOMED Code(s): 553274786 Code(s): M54.9 - DORSALGIA, UNSPECIFIED Status: Acute Current Visit: Yes (3) Urinary retention SNOMED Code(s): 035254058 Code(s): R33.9 - RETENTION OF URINE, UNSPECIFIED Status: Acute Current Visit: Yes (4) Afib SNOMED Code(s): 26071048 Code(s): I48.91 - UNSPECIFIED ATRIAL FIBRILLATION Status: Chronic Current Visit: Yes Qualifiers: Atrial fibrillation type: unspecified chronic Qualified Code(s): I48.20 - Chronic atrial fibrillation, unspecified; I48.2 - Chronic atrial fibrillation (5) Anemia in chronic illness SNOMED Code(s): 372377886 Code(s): D63.8 - ANEMIA IN OTHER CHRONIC DISEASES CLASSIFIED ELSEWHERE Status: Chronic Current Visit: Yes (6) Anticoagulated SNOMED Code(s): 377595534, 686057615 Code(s): Z79.01 - HALFWAY (CURRENT) USE OF ANTICOAGULANTS Status: Chronic Current Visit: Yes (7) BPH (benign prostatic hyperplasia) SNOMED Code(s): 257093846 Code(s): N40.0 - BENIGN PROSTATIC HYPERPLASIA WITHOUT LOWER URINRY TRACT SYMP Status: Chronic Current Visit: Yes (8) COPD (chronic obstructive pulmonary disease) SNOMED Code(s): 56377121 Code(s): J44.9 - CHRONIC OBSTRUCTIVE PULMONARY DISEASE, UNSPECIFIED Status: Chronic Current Visit: Yes (9) Leucocytosis SNOMED Code(s): 020303171, 377959632 Code(s): D72.829 - ELEVATED WHITE BLOOD CELL COUNT, UNSPECIFIED Status: Acute Current Visit: Yes - My Orders Last 24 Hours: My Active Orders 05/16/20 07:30 Insulin Aspart [NovoLOG] See Protocol SUBCUT TIDAC 05/16/20 14:15 Remove Patch 1 herman SHIRLEY Q72H
[2020-05-16] MEDS: Azithromycin 250 MG Tab PO SCH (12:17)
[2020-05-16] MEDS: fentaNYL 50 MCG/HR Transdermal Patch TRDERM SCH (14:37)
[2020-05-16] MEDS: Tamsulosin 0.4 MG Cap.ER PO SCH (20:23)
[2020-05-16] MEDS: Rosuvastatin 10 MG Tab PO SCH (20:23)
[2020-05-17] MEDS: Albuterol/Ipratropium 3.0-0.5 MG/3 ML Neb Soln NEB SCH ×5 (05:42→23:00)
[2020-05-17] MEDS: Gabapentin 300 MG Cap PO SCH ×3 (05:58→22:50)
[2020-05-17] MEDS: Piperacillin/Tazobactam 4.5 GM in Sodium Chloride 0.9% 100 ML IV SCH (05:58)
[2020-05-17 06:01] LABS: BLOOD UREA NITROGEN,BUN 18 mg/dL (7.0-18.0); CARBON DIOXIDE,CO2 29.3 mmol/L (21.0-32.0); CHLORIDE,CL 102 mmol/L (98-107); GLUCOSE RANDOM 254 mg/dL (74-106); POTASSIUM,K 4.2 mmol/L (3.5-5.1); SODIUM,NA 135 mmol/L (136-148)
[2020-05-17] MEDS: Acetaminophen/oxyCODONE 325-5 MG Tab PO PRN ×3 (06:35→20:19)
[2020-05-17] MEDS: Omeprazole 20 MG Cap.CR PO SCH ×2 (06:35→17:20)
[2020-05-17] MEDS: Cyclobenzaprine 5 MG Tab PO PRN ×2 (06:35→20:21)
[2020-05-17] MEDS: Insulin Aspart 100 Units/ML 3 ML Pen SUBCUT SCH ×3 (07:29→18:35)
[2020-05-17] MEDS: predniSONE 20 MG Tab PO SCH (08:02)
[2020-05-17] MEDS: DULoxetine 30 MG Cap PO SCH (08:03)
[2020-05-17] MEDS: Digoxin 250 MCG Tab PO SCH (08:03)
[2020-05-17] MEDS: Diltiazem 120 MG Cap.CD PO SCH (08:03)
[2020-05-17] MEDS: Apixaban 5 MG Tab PO SCH ×2 (08:04→20:21)
[2020-05-17] MEDS: Docusate Sodium 100 MG Cap PO SCH (08:04)
[2020-05-17] MEDS: Dutasteride 0.5 MG Cap PO SCH (08:04)
[2020-05-17] MEDS: Ferrous Sulfate 325 MG Tab PO SCH (08:04)
[2020-05-17] MEDS: Levothyroxine 88 MCG Tab PO SCH (08:04)
[2020-05-17] MEDS: Allopurinol 100 MG Tab PO SCH (08:04)
[2020-05-17] MEDS: Spironolactone 25 MG Tab PO SCH (08:04)
[2020-05-17] MEDS: Diltiazem 180 MG Cap.CD PO SCH (08:05)
[2020-05-17] MEDS: Nystatin Crm 30 GM Tube TOP SCH ×2 (08:08→20:22)
--- NOTE | 2020-05-17 10:35 | PCM.PN ---
- General Info Date of Service: 05/17/20 Admission Dx/Problem (Free Text): Admission Diagnosis/Problem Admission Diagnosis/Problem CAP, intractable back pain Subjective Update: Doing better today, back pain improving, still hurts but able to transfer like at home, sits up in bed. No new neurological deficits. Breathing much improved as well. No chest pain. No fevers. Functional Status: Reports: Pain Controlled, Tolerating Diet - Review of Systems General: Reports: No Symptoms. Denies: Weakness, Fatigue, Malaise HEENT: Reports: No Symptoms. Denies: Headaches, Visual Changes Pulmonary: Reports: No Symptoms. Denies: Shortness of Breath Gastrointestinal: Reports: No Symptoms. Denies: Abdominal Pain, Nausea, Vomiting Genitourinary: Reports: No Symptoms. Denies: Dysuria, Frequency Musculoskeletal: Reports: Back Pain (chronic, has improved from acute flare) Neurological: Reports: No Symptoms - Patient Data Vitals - Most Recent: Last Vital Signs Temp 97.9 F 05/17/20 07:43 Pulse 85 05/17/20 08:03 Resp 16 05/17/20 07:43 BP 117/78 05/17/20 08:03 Pulse Ox 95 05/17/20 07:43 Weight - Most Recent: 76.799 kg I&O - Last 24 Hours: Intake & Output 05/16/20 05/17/20 05/17/20 22:59 06:59 14:59 Intake Total 1367 1300 Output Total 1999 2350 Balance -633 -1050 Lab Results Last 24 Hours: Laboratory Results - last 24 hr 05/16/20 05/16/20 05/17/20 Range/Units 11:55 17:43 05:21 WBC 10.86 (4.0-11.0) K/uL RBC 4.25 L (4.50-5.90) M/uL Hgb 8.7 L (13.0-17.0) g/dL Hct 30.6 L (38.0-50.0) % MCV 72.0 L (80.0-98.0) fL MCH 20.5 L (27.0-32.0) pg MCHC 28.4 L (31.0-37.0) g/dL RDW Std Deviation 45.8 (28.0-62.0) fl RDW Coeff of Trixie 18 H (11.0-15.0) % Plt Count 316 (150-400) K/uL MPV 9.70 (7.40-12.00) fL Neut % (Auto) 78.1 (48.0-80.0) % Lymph % (Auto) 11.9 L (16.0-40.0) % Trego % (Auto) 9.5 (0.0-15.0) % Eos % (Auto) 0.1 (0.0-7.0) % Baso % (Auto) 0.4 (0.0-1.5) % Neut # (Auto) 8.5 H (1.4-5.7) K/uL Lymph # (Auto) 1.3 (0.6-2.4) K/uL Trego # (Auto) 1.0 H (0.0-0.8) K/uL Eos # (Auto) 0.0 (0.0-0.7) K/uL Baso # (Auto) 0.0 (0.0-0.1) K/uL Sodium (136-148) mmol/L Potassium (3.5-5.1) mmol/L Chloride (98-107) mmol/L Carbon Dioxide (21.0-32.0) mmol/L BUN (7.0-18.0) mg/dL Creatinine (0.8-1.3) mg/dL Est Cr Clr Drug Dosing mL/min Estimated GFR (MDRD) ml/min Glucose (74-106) mg/dL POC Glucose 231 H 324 H (60-110) mg/dL Calcium (8.5-10.1) mg/dL Magnesium (1.8-2.4) mg/dL 05/17/20 05/17/20 Range/Units 05:21 06:11 WBC (4.0-11.0) K/uL RBC (4.50-5.90) M/uL Hgb (13.0-17.0) g/dL Hct (38.0-50.0) % MCV (80.0-98.0) fL MCH (27.0-32.0) pg MCHC (31.0-37.0) g/dL RDW Std Deviation (28.0-62.0) fl RDW Coeff of Trixie (11.0-15.0) % Plt Count (150-400) K/uL MPV (7.40-12.00) fL Neut % (Auto) (48.0-80.0) % Lymph % (Auto) (16.0-40.0) % Trego % (Auto) (0.0-15.0) % Eos % (Auto) (0.0-7.0) % Baso % (Auto) (0.0-1.5) % Neut # (Auto) (1.4-5.7) K/uL Lymph # (Auto) (0.6-2.4) K/uL Trego # (Auto) (0.0-0.8) K/uL Eos # (Auto) (0.0-0.7) K/uL Baso # (Auto) (0.0-0.1) K/uL Sodium 135 L (136-148) mmol/L Potassium 4.2 (3.5-5.1) mmol/L Chloride 102 (98-107) mmol/L Carbon Dioxide 29.3 (21.0-32.0) mmol/L BUN 18 (7.0-18.0) mg/dL Creatinine 0.6 L (0.8-1.3) mg/dL Est Cr Clr Drug Dosing 116.52 mL/min Estimated GFR (MDRD) > 60.0 ml/min Glucose 254 H (74-106) mg/dL POC Glucose 244 H (60-110) mg/dL Calcium 8.5 (8.5-10.1) mg/dL Magnesium 1.8 (1.8-2.4) mg/dL Johan Results Last 24 Hours: Microbiology 05/13/20 10:15 Aerobic Blood Culture - Preliminary Blood - Venous - Lab Draw NO GROWTH AFTER 4 DAYS Anaerobic Blood Culture - Preliminary NO GROWTH AFTER 4 DAYS 05/13/20 10:12 Aerobic Blood Culture - Preliminary Blood - Venous NO GROWTH AFTER 4 DAYS Anaerobic Blood Culture - Preliminary NO GROWTH AFTER 4 DAYS Med Orders - Current: Current Medications Acetaminophen (Tylenol) 650 mg PO Q4H PRN PRN Reason: Pain (Mild 1-3)/fever Albuterol/Ipratropium (Duoneb 3.0-0.5 Mg/3 Ml) 3 ml NEB Q6HRRT YULISA Last Admin: 08/11/20 05:42 Dose: 3 ml Documented by: Allopurinol (Zyloprim) 100 mg PO DAILY [facility] Last Admin: 05/17/20 08:04 Dose: 100 mg Documented by: Apixaban (Eliquis) 5 mg PO BID [facility] Last Admin: 05/17/20 08:04 Dose: 5 mg Documented by: Azithromycin (Zithromax) 500 mg PO Q24H [facility] Last Admin: 05/16/20 12:17 Dose: 500 mg Documented by: Cyclobenzaprine HCl (Flexeril) 5 mg PO BID PRN PRN Reason: Muscle Spasm Last Admin: 05/17/20 06:35 Dose: 5 mg Documented by: Digoxin (Lanoxin) 250 mcg PO DAILY [facility] Last Admin: 05/17/20 08:03 Dose: 250 mcg Documented by: Diltiazem HCl (Cardizem Cd) 120 mg PO DAILY [facility] Last Admin: 05/17/20 08:03 Dose: 120 mg Documented by: Diltiazem HCl (Cardizem Cd) 180 mg PO DAILY [facility] Last Admin: 05/17/20 08:05 Dose: 180 mg Documented by: Docusate Sodium (Colace) 100 mg PO DAILY [facility] Last Admin: 05/17/20 08:04 Dose: 100 mg Documented by: Duloxetine HCl (Cymbalta) 30 mg PO DAILY [facility] Last Admin: 05/17/20 08:03 Dose: 30 mg Documented by: Dutasteride (Avodart) 0.5 mg PO DAILY [facility] Last Admin: 05/17/20 08:04 Dose: 0.5 mg Documented by: Fentanyl (Duragesic) 50 mcg TRDERM Q72H [facility] Last Admin: 05/16/20 14:37 Dose: 50 mcg Documented by: Ferrous Sulfate (Ferrous Sulfate) 325 mg PO DAILY [facility] Last Admin: 05/17/20 08:04 Dose: 325 mg Documented by: Gabapentin (Neurontin) 300 mg PO TID [facility] Last Admin: 05/17/20 05:58 Dose: 300 mg Documented by: Insulin Aspart (Novolog) 0 unit SUBCUT TIDAC [facility]; Protocol Last Admin: 05/17/20 07:29 Dose: 6 units Documented by: Levothyroxine Sodium (Synthroid) 88 mcg PO DAILY [facility] Last Admin: 05/17/20 08:04 Dose: 88 mcg Documented by: Miscellaneous Information (Remove Patch) 1 ea TRDERM Q72H [facility] Last Admin: 05/16/20 14:36 Dose: 1 ea Documented by: Nystatin (Nystatin Crm) 0 gm TOP BID [facility] Last Admin: 05/17/20 08:08 Dose: 1 applic Documented by: Omeprazole (Omeprazole) 20 mg PO BIDAC [facility] Last Admin: 05/17/20 06:35 Dose: 20 mg Documented by: Ondansetron HCl (Zofran) 4 mg IVPUSH Q4H PRN PRN Reason: Nausea Oxycodone/Acetaminophen (Percocet 325-5 Mg) 1 tab PO Q4H PRN PRN Reason: severe pain Last Admin: 05/17/20 06:35 Dose: 1 tab Documented by: Prednisone (Prednisone) 40 mg PO WITHBREAKFAST [facility] Last Admin: 05/17/20 08:02 Dose: 40 mg Documented by: Rosuvastatin Calcium (Crestor) 5 mg PO BEDTIME [facility] Last Admin: 05/16/20 20:23 Dose: 5 mg Documented by: Sodium Chloride (Saline Flush) 2.5 ml FLUSH ASDIRECTED PRN PRN Reason: Keep Vein Open Spironolactone (Aldactone) 25 mg PO DAILY [facility] Last Admin: 05/17/20 08:04 Dose: 25 mg Documented by: Tamsulosin HCl (Flomax) 0.8 mg PO BEDTIME [facility] Last Admin: 05/16/20 20:23 Dose: 0.8 mg Documented by: Discontinued Medications Albuterol/Ipratropium (Duoneb 3.0-0.5 Mg/3 Ml) 3 ml NEB ONETIME ONE Stop: 05/13/20 05:38 Last Admin: 05/13/20 05:53 Dose: 3 ml Documented by: Albuterol/Ipratropium (Duoneb 3.0-0.5 Mg/3 Ml) 3 ml NEB Q4HRRT [facility] Last Admin: 05/16/20 09:46 Dose: 3 ml Documented by: Azithromycin (Zithromax) 500 mg PO Q24H [facility] Last Admin: 05/13/20 08:23 Dose: 500 mg Documented by: Azithromycin (Zithromax) 500 mg PO Q24H [facility] Last Admin: 05/15/20 08:29 Dose: 500 mg Documented by: Fentanyl (Duragesic) 25 mcg TRDERM Q72H [facility] Last Admin: 05/13/20 12:42 Dose: Not Given Documented by: Fentanyl (Duragesic) 25 mcg TRDERM Q72H [facility] Furosemide (Lasix) 40 mg PO DAILY [facility] Last Admin: 05/15/20 08:31 Dose: 40 mg Documented by: Ceftriaxone Sodium/Dextrose 1 (gm/ Premix) 50 mls @ 100 mls/hr IV Q24H [facility] Sodium Chloride (Normal Saline) 1,000 mls @ 100 mls/hr IV Q10H [facility] Last Admin: 05/13/20 09:00 Dose: 100 mls/hr Documented by: Ceftriaxone Sodium/Dextrose 1 (gm/ Premix) 50 mls @ 100 mls/hr IV Q24H [facility] Last Admin: 05/15/20 00:29 Dose: 100 mls/hr Documented by: Piperacillin Sod/Tazobactam (Sod 4.5 gm/ Sodium Chloride) 100 mls @ 200 mls/hr IV Q6H [facility] Last Admin: 05/17/20 05:58 Dose: 200 mls/hr Documented by: Lactated Ringer's (Ringers, Lactated) 1,000 mls @ 125 mls/hr IV ASDIRECTED [facility] Last Admin: 05/16/20 01:10 Dose: 125 mls/hr Documented by: Vancomycin HCl 1.5 gm/ Premix 300 mls @ 200 mls/hr IV Q12H [facility] Last Admin: 05/16/20 00:49 Dose: 200 mls/hr Documented by: Insulin Aspart (Novolog) 0 unit SUBCUT TIDAC [facility]; Protocol Last Admin: 05/15/20 18:17 Dose: Not Given Documented by: Insulin Aspart (Novolog) 10 unit SUBCUT ONETIME ONE Stop: 05/15/20 17:31 Last Admin: 05/15/20 17:37 Dose: 10 units Documented by: Iopamidol (Isovue-370 (76%)) 100 ml IVPUSH ONETIME STA Stop: 05/13/20 07:29 Last Admin: 05/13/20 07:29 Dose: 100 ml Documented by: Methylprednisolone Sodium Succinate (Solu-Medrol) 125 mg IV ONETIME ONE Stop: 05/13/20 05:41 Last Admin: 05/13/20 05:57 Dose: 125 mg Documented by: Methylprednisolone Sodium Succinate (Solu-Medrol) 40 mg IV Q12H YULISA Last Admin: 05/16/20 08:53 Dose: 40 mg Documented by: Morphine Sulfate (Morphine) 4 mg IVPUSH ONETIME ONE Stop: 05/13/20 06:43 Last Admin: 05/13/20 07:30 Dose: 4 mg Documented by: Morphine Sulfate (Morphine) 2 mg IVPUSH Q3H PRN PRN Reason: Pain Last Admin: 05/13/20 12:36 Dose: 2 mg Documented by: Morphine Sulfate (Morphine) 3 mg IVPUSH ONETIME ONE Stop: 05/13/20 13:31 Last Admin: 05/13/20 13:29 Dose: 3 mg Documented by: Morphine Sulfate (Morphine) 4 mg IVPUSH Q3H PRN PRN Reason: Pain Last Admin: 05/16/20 07:09 Dose: 4 mg Documented by: Oxycodone HCl (Oxycodone) 10 mg PO ONETIME ONE Stop: 05/13/20 08:14 Last Admin: 05/13/20 08:23 Dose: 10 mg Documented by: Oxycodone/Acetaminophen (Percocet 325-5 Mg) 1 tab PO Q6H PRN PRN Reason: severe pain Last Admin: 05/16/20 12:27 Dose: 1 tab Documented by: Vancomycin HCl (Pharmacy To Dose - Vancomycin) 1 dose .XX ASDIRECTED YULISA - Exam General: Alert, Oriented, Cooperative, No Acute Distress Lungs: Normal Respiratory Effort, Wheezing (scant). No: Rhonchi Cardiovascular: Regular Rate, Regular Rhythm GI/Abdominal Exam: Normal Bowel Sounds, Soft, Non-Tender Back Exam: Normal Inspection, Full Range of Motion Extremities: Normal Inspection, Normal Range of Motion, Non-Tender, No Pedal E nicolette Neurological: No New Focal Deficit Psy/Mental Status: Alert, Normal Affect, Normal Mood Sepsis Event Note - Evaluation Sepsis Screening Result: No Definite Risk - Focused Exam Vital Signs: Vital Signs Temp Pulse Pulse Resp BP BP BP 05/17/20 08:03 85 117/78 05/17/20 07:43 97.9 F 85 16 117/78 05/17/20 04:00 97.5 F 75 12 114/60 05/17/20 00:00 97.2 F 67 18 124/64 Pulse Ox 05/17/20 08:03 08/11/20 07:43 95 05/17/20 04:00 92 L 05/17/20 00:00 - Problem List & Annotations (1) Intractable back pain SNOMED Code(s): 169888655 Code(s): M54.9 - DORSALGIA, UNSPECIFIED Status: Acute Current Visit: Yes (2) UTI, Urinary tract infectious disease SNOMED Code(s): 13413818 Code(s): N39.0 - URINARY TRACT INFECTION, SITE NOT SPECIFIED Status: Acute Current Visit: No (3) CAP (community acquired pneumonia) SNOMED Code(s): 380703690 Code(s): J18.9 - PNEUMONIA, UNSPECIFIED ORGANISM Status: Acute Current Visit: Yes (4) Urinary retention SNOMED Code(s): 480843225 Code(s): R33.9 - RETENTION OF URINE, UNSPECIFIED Status: Acute Current Visit: Yes (5) Afib SNOMED Code(s): 42264979 Code(s): I48.91 - UNSPECIFIED ATRIAL FIBRILLATION Status: Chronic Current Visit: Yes Qualifiers: Atrial fibrillation type: unspecified chronic Qualified Code(s): I48.20 - Chronic atrial fibrillation, unspecified; I48.2 - Chronic atrial fibrillation (6) Systolic heart failure SNOMED Code(s): 806478176 Code(s): I50.20 - UNSPECIFIED SYSTOLIC (CONGESTIVE) HEART FAILURE Status: Chronic Current Visit: Yes Qualifiers: Heart failure chronicity: chronic Qualified Code(s): I50.22 - Chronic systolic (congestive) heart failure (7) Anticoagulated SNOMED Code(s): 176746999, 903561687 Code(s): Z79.01 - TRANSFER PROFESSOR (CURRENT) USE OF ANTICOAGULANTS Status: Chronic Current Visit: Yes (8) Rheumatoid arthritis SNOMED Code(s): 02517031 Code(s): M06.9 - RHEUMATOID ARTHRITIS, UNSPECIFIED Status: Chronic Current Visit: Yes (9) Fibromyalgia SNOMED Code(s): 477502354 Code(s): M79.7 - FIBROMYALGIA Status: Chronic Current Visit: Yes (10) COPD (chronic obstructive pulmonary disease) SNOMED Code(s): 40112643 Code(s): J44.9 - CHRONIC OBSTRUCTIVE PULMONARY DISEASE, UNSPECIFIED Status: Chronic Current Visit: Yes (11) Oxygen dependent SNOMED Code(s): 874371343062 Code(s): Z99.81 - DEPENDENCE ON SUPPLEMENTAL OXYGEN Status: Chronic Current Visit: Yes (12) ALF (obstructive sleep apnea) SNOMED Code(s): 09941536 Code(s): G47.33 - OBSTRUCTIVE SLEEP APNEA (ADULT) (PEDIATRIC) Status: Chronic Current Visit: Yes (13) Hypothyroid SNOMED Code(s): 91110351 Code(s): E03.9 - HYPOTHYROIDISM, UNSPECIFIED Status: Chronic Current Visit: Yes (14) BPH (benign prostatic hyperplasia) SNOMED Code(s): 753037526 Code(s): N40.0 - BENIGN PROSTATIC HYPERPLASIA WITHOUT LOWER URINRY TRACT SYMP Status: Chronic Current Visit: Yes (15) Anemia in chronic illness SNOMED Code(s): 437265365 Code(s): D63.8 - ANEMIA IN OTHER CHRONIC DISEASES CLASSIFIED ELSEWHERE Status: Chronic Current Visit: Yes (16) HTN (hypertension) SNOMED Code(s): 70306236 Code(s): I10 - ESSENTIAL (PRIMARY) HYPERTENSION Status: Chronic Current Visit: Yes (17) HLD (hyperlipidemia) SNOMED Code(s): 26618188 Code(s): E78.5 - HYPERLIPIDEMIA, UNSPECIFIED Status: Chronic Current Visit: Yes (18) Sciatica SNOMED Code(s): 97031359 Code(s): M54.30 - SCIATICA, UNSPECIFIED SIDE Status: Chronic Current Visit: Yes Qualifiers: Laterality: bilateral Qualified Code(s): M54.31 - Sciatica, right side; M54.32 - Sciatica, left side (19) Spinal stenosis of lumbar region with neurogenic claudication SNOMED Code(s): 33784355, 036330600 Code(s): M48.062 - SPINAL STENOSIS, LUMBAR REGION WITH NEUROGENIC CLAUDICATION Status: Chronic Current Visit: Yes (20) DM type 2 (diabetes mellitus, type 2) SNOMED Code(s): 53748489 Code(s): E11.9 - TYPE 2 DIABETES MELLITUS WITHOUT COMPLICATIONS Status: Chronic Current Visit: Yes Qualifiers: Diabetes mellitus extermination inspector insulin use: without extermination inspector use - Problem List Review Problem List Initiated/Reviewed/Updated: Yes - My Orders Last 24 Hours: My Active Orders 05/16/20 11:45 Azithromycin [Zithromax] 500 mg PO Q24H 05/16/20 13:18 RT Aerosol Therapy [RC] ASDIRECTED 05/16/20 16:11 Acetaminophen/oxyCODONE [Percocet 325-5 MG] 1 tab PO Q4H PRN 05/16/20 18:00 Albuterol/Ipratropium [DuoNeb 3.0-0.5 MG/3 ML] 3 ml NEB Q6HRRT 05/17/20 08:00 predniSONE 40 mg PO WITHBREAKFAST 05/18/20 05:11 BASIC METABOLIC PANEL,BMP [CHEM] AM CBC WITH AUTO DIFF [HEME] AM MAGNESIUM [CHEM] AM - Plan Plan:: This 79 year old male admitted with intractable acute on chronic back pain, UTI and CAP 1. Intractable back pain - Improving, near baseline. - Fentanyl patch 50 mcg, - cont Flexeril PRN muscle spasms - Tylenol PRN - Heat and Ice prn - Continue Cymbalta - PT/OT to evaluate and treat- declined wanting to work with PT yesterday, stating he is at his baseline. - Discussed discharge home today, he doesn't feel ready as pain continues. Yet we discussed how pain has improved and he is using all medications he takes at home after increase in Fentanyl patch. He discussed wanting inpatient rehabilitation for ambulation. Will discuss with Roland and social work to help with this, but patient has declined this in the past. Reports he has is electric wheelchair at home and is able to get around. 2. CAP: - DC Zosyn and Continue Azithromycin for total of 7 days course - Duonebs PRN - Prednisone 40 mg daily. - Intermittent oxygen use at home, not all the time per patient report - Encourage IS, CDB 3. COPD: - Continue inhalers and Duonebs - Oxygen to keep sats 88% 4. Atrial fibrillation on chronic anticoagulation/HTN/HLD/CHF - Continue Digoxin and Diltiazem - Continue Eliquis - Continue Statin - Monitor VS. - Strict I/O, daily weights, low Na diet 5. DM Type 2: - BS improving, continue to monitor with steroid dc - Novolog SSI with meals - ADA diet - Hold PO medications for now. VTE prophylaxis: Eliquis Dispo: likely in am.
[2020-05-17] MEDS: Azithromycin 250 MG Tab PO SCH (11:10)
[2020-05-17] MEDS: Rosuvastatin 10 MG Tab PO SCH (20:19)
[2020-05-17] MEDS: Tamsulosin 0.4 MG Cap.ER PO SCH (20:21)
[2020-05-18] MEDS: Albuterol/Ipratropium 3.0-0.5 MG/3 ML Neb Soln NEB SCH (05:38)
[2020-05-18 06:29] LABS: BLOOD UREA NITROGEN,BUN 18 mg/dL (7.0-18.0); CARBON DIOXIDE,CO2 30.5 mmol/L (21.0-32.0); CHLORIDE,CL 101 mmol/L (98-107); GLUCOSE RANDOM 211 mg/dL (74-106); POTASSIUM,K 4.3 mmol/L (3.5-5.1); SODIUM,NA 137 mmol/L (136-148)
[2020-05-18] MEDS: Omeprazole 20 MG Cap.CR PO SCH (06:50)
[2020-05-18] MEDS: Insulin Aspart 100 Units/ML 3 ML Pen SUBCUT SCH ×2 (06:50→12:02)
[2020-05-18] MEDS: Gabapentin 300 MG Cap PO SCH (06:50)
[2020-05-18] MEDS: Acetaminophen/oxyCODONE 325-5 MG Tab PO PRN ×2 (07:31→12:00)
[2020-05-18] MEDS: Docusate Sodium 100 MG Cap PO SCH (08:41)
[2020-05-18] MEDS: Diltiazem 120 MG Cap.CD PO SCH (08:41)
[2020-05-18] MEDS: predniSONE 20 MG Tab PO SCH (08:41)
[2020-05-18] MEDS: Ferrous Sulfate 325 MG Tab PO SCH (08:42)
[2020-05-18] MEDS: DULoxetine 30 MG Cap PO SCH (08:42)
[2020-05-18] MEDS: Allopurinol 100 MG Tab PO SCH (08:42)
[2020-05-18] MEDS: Dutasteride 0.5 MG Cap PO SCH (08:42)
[2020-05-18] MEDS: Digoxin 250 MCG Tab PO SCH (08:43)
[2020-05-18] MEDS: Levothyroxine 88 MCG Tab PO SCH (08:43)
[2020-05-18] MEDS: Diltiazem 180 MG Cap.CD PO SCH (08:43)
[2020-05-18] MEDS: Apixaban 5 MG Tab PO SCH (08:43)
[2020-05-18] MEDS: Cyclobenzaprine 5 MG Tab PO PRN (08:43)
[2020-05-18] MEDS: Spironolactone 25 MG Tab PO SCH (08:43)
[2020-05-18] MEDS: Nystatin Crm 30 GM Tube TOP SCH (08:51)
[2020-05-18] MEDS: Azithromycin 250 MG Tab PO SCH (12:00)
--- NOTE | 2020-05-18 12:05 | PCM.DCSUM1 ---
Discharge Summary - Hospital Course Brief History: This 79 year old male with pmh of chronic back pain on narcotics, COPD, BPH with urinary retention and hx of clifton, systolic heart failure, sciatica, afib on anticoagulation and hypothyroidism presented to [facility] for worsening back pain. He reports he has been dealing with increasing back pain for the last couple weeks. His PCP had obtained lumbar MRI, which showed extensive multilevel degenerative changes and degenerative disc disease noted throughout the lumbar spine. He continues to have numbness to lower legs, which is not new. He is non ambulatory, is able to stand and transfer with assist of one. This is his normal. No new stool incontinence or urinary incontinence. He reports otherwise he has felt ok. No fevers or chills, no increase in dyspnea. Reports a little bit of productive cough. Has wheezing. Denies chest pain. No abdominal pain. He reports he is urinating, but very small amounts and with a lot of pressure needed. He reports he had a clifton last fall, but wanted it removed and he has been taking Flomax. He smokes 1 ppd, no alcohol use and no recreational drug use. In the ED CBC 10,880. Hgb 9.1/ Hct 33.4 BMP WNL. BNP 73. CXR revealed bibasilar opacities, suggestive of pneumonia. CT abd/pelvis obtained shows thick walled bladder likely secondary to underdistention and chronic bladder outlet obstruction and mildly enlarged prostate. Ventral hernia with non obstructed bowel loops present. Patchy consolidations in lower lobes of lung bilaterally. He was treated with Rocephin in [place], given Azithromycin in ED. Clifton was placed in [place], UA there appeared to have significant pyruia, RBC with many bacteria. Ua here appears cleared after clifton placement. UC pending. BC obtained. He will be admitted inpatient for acute on chronic low back pain, UTI and CAP. PCP Breanna Mares NP, [place] Diagnosis: Stroke: No - Discharge Data Discharge Date: 05/18/20 Discharge Disposition: Home, Self-Care 01 Condition: Good - Referral to Home Health Primary Care Physician: PCP None - Discharge Diagnosis/Problem(s) (1) Intractable back pain SNOMED Code(s): 798200851 ICD Code: M54.9 - DORSALGIA, UNSPECIFIED Status: Acute Current Visit: Yes (2) UTI, Urinary tract infectious disease SNOMED Code(s): 18936618 ICD Code: N39.0 - URINARY TRACT INFECTION, SITE NOT SPECIFIED Status: Resolved Current Visit: No (3) CAP (community acquired pneumonia) SNOMED Code(s): 402074805 ICD Code: J18.9 - PNEUMONIA, UNSPECIFIED ORGANISM Status: Acute Current Visit: Yes (4) Urinary retention SNOMED Code(s): 795746685 ICD Code: R33.9 - RETENTION OF URINE, UNSPECIFIED Status: Acute Current Visit: Yes (5) Afib SNOMED Code(s): 34532923 ICD Code: I48.91 - UNSPECIFIED ATRIAL FIBRILLATION Status: Chronic Current Visit: Yes Qualifiers: Atrial fibrillation type: unspecified chronic Qualified Code(s): I48.20 - Chronic atrial fibrillation, unspecified; I48.2 - Chronic atrial fibrillation (6) Systolic heart failure SNOMED Code(s): 443716249 ICD Code: I50.20 - UNSPECIFIED SYSTOLIC (CONGESTIVE) HEART FAILURE Status: Chronic Current Visit: Yes Qualifiers: Heart failure chronicity: chronic Qualified Code(s): I50.22 - Chronic systolic (congestive) heart failure (7) Anticoagulated SNOMED Code(s): 652473796, 414790281 ICD Code: Z79.01 - SPAR CAP BEVELER (CURRENT) USE OF ANTICOAGULANTS Status: Chronic Current Visit: Yes (8) Rheumatoid arthritis SNOMED Code(s): 49449496 ICD Code: M06.9 - RHEUMATOID ARTHRITIS, UNSPECIFIED Status: Chronic Current Visit: Yes (9) Fibromyalgia SNOMED Code(s): 513978198 ICD Code: M79.7 - FIBROMYALGIA Status: Chronic Current Visit: Yes (10) COPD (chronic obstructive pulmonary disease) SNOMED Code(s): 51426618 ICD Code: J44.9 - CHRONIC OBSTRUCTIVE PULMONARY DISEASE, UNSPECIFIED Status: Chronic Current Visit: Yes (11) Oxygen dependent SNOMED Code(s): 835234033765 ICD Code: Z99.81 - DEPENDENCE ON SUPPLEMENTAL OXYGEN Status: Chronic Current Visit: Yes (12) ALF (obstructive sleep apnea) SNOMED Code(s): 46385908 ICD Code: G47.33 - OBSTRUCTIVE SLEEP APNEA (ADULT) (PEDIATRIC) Status: Chronic Current Visit: Yes (13) Hypothyroid SNOMED Code(s): 58951493 ICD Code: E03.9 - HYPOTHYROIDISM, UNSPECIFIED Status: Chronic Current Visit: Yes (14) BPH (benign prostatic hyperplasia) SNOMED Code(s): 008658366 ICD Code: N40.0 - BENIGN PROSTATIC HYPERPLASIA WITHOUT LOWER URINRY TRACT SYMP Status: Chronic Current Visit: Yes (15) Anemia in chronic illness SNOMED Code(s): 395892762 ICD Code: D63.8 - ANEMIA IN OTHER CHRONIC DISEASES CLASSIFIED ELSEWHERE Status: Chronic Current Visit: Yes (16) HTN (hypertension) SNOMED Code(s): 84128257 ICD Code: I10 - ESSENTIAL (PRIMARY) HYPERTENSION Status: Chronic Current Visit: Yes (17) HLD (hyperlipidemia) SNOMED Code(s): 35430374 ICD Code: E78.5 - HYPERLIPIDEMIA, UNSPECIFIED Status: Chronic Current Visit: Yes (18) Sciatica SNOMED Code(s): 89257106 ICD Code: M54.30 - SCIATICA, UNSPECIFIED SIDE Status: Chronic Current Visit: Yes Qualifiers: Laterality: bilateral Qualified Code(s): M54.31 - Sciatica, right side; M54.32 - Sciatica, left side (19) Spinal stenosis of lumbar region with neurogenic claudication SNOMED Code(s): 90543025, 526307477 ICD Code: M48.062 - SPINAL STENOSIS, LUMBAR REGION WITH NEUROGENIC CLAUDICATION Status: Chronic Current Visit: Yes (20) DM type 2 (diabetes mellitus, type 2) SNOMED Code(s): 43864676 ICD Code: E11.9 - TYPE 2 DIABETES MELLITUS WITHOUT COMPLICATIONS Status: Chronic Current Visit: Yes Qualifiers: Diabetes mellitus nursing home insulin use: without long term care phlebotomist use - Patient Summary/Data Consults: Consultations 05/14/20 11:08 Consult to Physical Therapy [PT Evaluation and Treatment] [CONS] Routine 05/16/20 08:53 OT Evaluation and Treatment [CONS] Routine Hospital Course: Admitting Diagnoses: UTI Urinary retention CAP Intractable back pain Discharge Diagnoses Urinary retention CAP Intractable back pain other PMH: Afib on chronic anticoagulation HTN DM Type 2 COPD Oxygen dependent Ambulatory dysfunction BPH Systolic CHF Fibromyalgia RA HLD Ed was admitted after being transferred to our facility from [place] for urinary retention. Clifton was placed, and he was started on antibiotics for suspected UTI. Prostatitis ruled out, exam not compelling and UC negative. CXR upon arrival revealed CAP and he was then treated with Rocephin and Azithromycin for CAP. He was intermittently on oxygen as he was at home, he was started on Solumedrol for mild COPD exacerbation. Coverage was broaded due to concern of sepsis, to Vanco and Zosyn x 1 day, this was then de-escalated quickly as he was not septic. PT was ordered for back pain, but he declined wanting to see them. Fentanyl patch was increased to 50 mcg, which seemed to help the pain along with Flexeril and Oxycodone PRN. MRI was attempted but pain was too much. For back pain, he is to follow up with PCP who has started referral with pain specialist and neurosurgeon. New fentanyl script sent. He is to continue oxycodone PRN and encouraged ambulation and outpatient PT. He has declined inpatient rehabilitation. Clifton remained in place during stay. UC revealed no bacterial growth. Follow up with Dr Zambrano as outpatient for further management of BPH and urinary retention. He was treated soley for CAP with Azithromycin. He is to return to ED or clinic if concerns should arise. - Patient Instructions Diet: Diabetic Diet Activity: No Strenuous Activities Driving: Do Not Drive Showering/Bathing: May Shower Notify Provider of: Fever, Increased Pain, Nausea and/or Vomiting Other/Special Instructions: Clifton cares, leg bag during the day. Needs to be changed in 30 days. Follow up with Dr Zambrano regarding bladder catheter. Primary care to help arrange further back care. Ice or heat therapy to back as needed. 20 minutes on and 20 minutes off. - Discharge Plan *PRESCRIPTION DRUG MONITORING PROGRAM REVIEWED*: Yes *COPY OF PRESCRIPTION DRUG MONITORING REPORT IN PATIENT RON: No Prescriptions/Med Rec: fentaNYL [Duragesic] 50 mcg TRDERM Q72H #5 patch Cyclobenzaprine [Flexeril] 5 mg PO BID PRN #10 tablet PRN Reason: Muscle Spasm Azithromycin [Zithromax] 500 mg PO Q24H #4 tablet Home Medications: Home Meds Acetaminophen [Pain Relief] 500 mg PO Q6H PRN 05/13/20 [History] Acetaminophen/oxyCODONE [Percocet 325-5 MG] 5 - 325 mg PO Q6H PRN 05/13/20 [History] Albuterol Sulfate [Albuterol Sulfate Hfa] 2 inh INH Q4H PRN 05/13/20 [History] Albuterol/Ipratropium [DuoNeb 3.0-0.5 MG/3 ML] 3 ml NEB QID PRN 05/13/20 [History] Allopurinol [Zyloprim] 100 mg PO DAILY 05/13/20 [History] Apixaban [Eliquis] 5 mg PO BID 05/13/20 [History] DULoxetine [Cymbalta] 30 mg PO DAILY 05/13/20 [History] Digoxin 0.25 mg PO DAILY 05/13/20 [History] Docusate Sodium [Colace] 100 mg PO DAILY 05/13/20 [History] Dutasteride [Avodart] 0.5 mg PO DAILY 05/13/20 [History] Empagliflozin [Jardiance] 10 mg PO DAILY 05/13/20 [History] Ferrous Sulfate 325 mg PO DAILY 05/13/20 [History] Furosemide 40 mg PO DAILY 05/13/20 [History] Gabapentin [Neurontin] 300 mg PO TID 05/13/20 [History] Levothyroxine [Synthroid] 88 mcg PO DAILY 05/13/20 [History] Nystatin [Nystatin Crm] 1 applic TOP BID 05/13/20 [History] Omeprazole 20 mg PO BIDAC 05/13/20 [History] Phenazopyridine [Pyridium] 100 mg PO TID PRN 05/13/20 [History] Rosuvastatin [Crestor] 5 mg PO BEDTIME 05/13/20 [History] Spironolactone [Aldactone] 25 mg PO DAILY 05/13/20 [History] Tamsulosin HCl [Flomax] 0.8 mg PO BEDTIME 05/13/20 [History] dilTIAZem HCL [Diltiazem 24Hr ER] 300 mg PO DAILY 05/13/20 [History] metFORMIN HCl [Glucophage] 1,000 mg PO BIDMEALS 05/13/20 [History] predniSONE [Prednisone] 10 mg PO . DIRECTED PRN 05/13/20 [History] sitaGLIPtin Phosphate [Januvia] 50 mg PO DAILY 05/13/20 [History] Azithromycin [Zithromax] 500 mg PO Q24H #4 tablet 05/18/20 [Rx] Cyclobenzaprine [Flexeril] 5 mg PO BID PRN #10 tablet 05/18/20 [Rx] fentaNYL [Duragesic] 50 mcg TRDERM Q72H #5 patch 05/18/20 [Rx] Oxygen Therapy Mode: Room Air Patient Handouts: Cyclobenzaprine tablets, Azithromycin tablets, Urinary Tract Infection, Adult, Indwelling Urinary Catheter Care, Adult, [id number], Chronic Back Pain, Icxf-ev-Cmol, Fentanyl skin patch, Acute Urinary Retention, Male, Zckl-fi-[id number], Community-Acquired Pneumonia, Adult, Mzus-mq-Pyxz Referrals: Monica Mares NP [Ordering Only Provider] - 05/24/20 1:00 pm Jovanna Zambrano MD [Physician] - 06/06/20 1:00 pm () - Discharge Summary/Plan Comment DC Time >30 min.: No - Patient Data Vitals - Most Recent: Last Vital Signs Temp 98.1 F 05/18/20 07:00 Pulse 90 05/18/20 08:43 Resp 18 05/18/20 07:00 BP 107/54 L 05/18/20 08:41 Pulse Ox 94 L 05/18/20 07:00 Weight - Most Recent: 88.042 kg I&O - Last 24 hours: Intake & Output 05/17/20 05/18/20 05/18/20 22:59 06:59 14:59 Intake Total 1070 1200 Output Total 2300 2100 Balance -1230 -900 Lab Results - Last 24 hrs: Laboratory Results - last 24 hr 05/17/20 05/18/20 05/18/20 Range/Units 17:18 05:34 05:34 WBC 11.81 H (4.0-11.0) K/uL RBC 4.69 (4.50-5.90) M/uL Hgb 9.4 L (13.0-17.0) g/dL Hct 34.3 L (38.0-50.0) % MCV 73.1 L (80.0-98.0) fL MCH 20.0 L (27.0-32.0) pg MCHC 27.4 L (31.0-37.0) g/dL RDW Std Deviation 46.8 (28.0-62.0) fl RDW Coeff of Trixie 18 H (11.0-15.0) % Plt Count 360 (150-400) K/uL MPV 9.60 (7.40-12.00) fL Neut % (Auto) 73.6 (48.0-80.0) % Lymph % (Auto) 18.7 (16.0-40.0) % [facility] % (Auto) 6.9 (0.0-15.0) % Eos % (Auto) 0.7 (0.0-7.0) % Baso % (Auto) 0.1 (0.0-1.5) % Neut # (Auto) 8.7 H (1.4-5.7) K/uL Lymph # (Auto) 2.2 (0.6-2.4) K/uL [facility] [place] [facility] # (Auto) 0.8 (0.0-0.8) K/uL Eos # (Auto) 0.1 (0.0-0.7) K/uL Baso # (Auto) 0.0 (0.0-0.1) K/uL Nucleated RBC % 0.0 /100WBC Nucleated RBCs # 0 K/uL Sodium 137 (136-148) mmol/L Potassium 4.3 (3.5-5.1) mmol/L Chloride 101 (98-107) mmol/L Carbon Dioxide 30.5 (21.0-32.0) mmol/L BUN 18 (7.0-18.0) mg/dL Creatinine 0.5 L (0.8-1.3) mg/dL Est Cr Clr Drug Dosing 134.40 mL/min Estimated GFR (MDRD) > 60.0 ml/min Glucose 211 H (74-106) mg/dL POC Glucose 278 H (60-110) mg/dL Calcium 8.5 (8.5-10.1) mg/dL Magnesium 2.0 (1.8-2.4) mg/dL 05/18/20 Range/Units 06:19 WBC (4.0-11.0) K/uL RBC (4.50-5.90) M/uL Hgb (13.0-17.0) g/dL Hct (38.0-50.0) % MCV (80.0-98.0) fL MCH (27.0-32.0) pg MCHC (31.0-37.0) g/dL RDW Std Deviation (28.0-62.0) fl RDW Coeff of Trixie (11.0-15.0) % Plt Count (150-400) K/uL MPV (7.40-12.00) fL Neut % (Auto) (48.0-80.0) % Lymph % (Auto) (16.0-40.0) % [facility] [facility] % (Auto) (0.0-15.0) % Eos % (Auto) (0.0-7.0) % Baso % (Auto) (0.0-1.5) % Neut # (Auto) (1.4-5.7) K/uL Lymph # (Auto) (0.6-2.4) K/uL [facility] # (Auto) (0.0-0.8) K/uL Eos # (Auto) (0.0-0.7) K/uL Baso # (Auto) (0.0-0.1) K/uL Nucleated RBC % /100WBC Nucleated RBCs # K/uL Sodium (136-148) mmol/L Potassium (3.5-5.1) mmol/L Chloride (98-107) mmol/L Carbon Dioxide (21.0-32.0) mmol/L BUN (7.0-18.0) mg/dL Creatinine (0.8-1.3) mg/dL Est Cr Clr Drug Dosing mL/min Estimated GFR (MDRD) ml/min Glucose (74-106) mg/dL POC Glucose 195 H (60-110) mg/dL Calcium (8.5-10.1) mg/dL Magnesium (1.8-2.4) mg/dL GABRIELA Results - Last 24 hrs: Microbiology 05/13/20 10:15 Aerobic Blood Culture - Final Blood - Venous - Lab Draw NO GROWTH AFTER 5 DAYS Anaerobic Blood Culture - Final NO GROWTH AFTER 5 DAYS 05/13/20 10:12 Aerobic Blood Culture - Final Blood - Venous NO GROWTH AFTER 5 DAYS Anaerobic Blood Culture - Final NO GROWTH AFTER 5 DAYS Med Orders - Current: Current Medications Acetaminophen (Tylenol) 650 mg PO Q4H PRN PRN Reason: Pain (Mild 1-3)/fever Albuterol/Ipratropium (Duoneb 3.0-0.5 Mg/3 Ml) 3 ml NEB Q6HRRT YULISA Last Admin: 05/18/20 05:38 Dose: 3 ml Documented by: Allopurinol (Zyloprim) 100 mg PO DAILY [facility] Last Admin: 05/18/20 08:42 Dose: 100 mg Documented by: Apixaban (Eliquis) 5 mg PO BID [facility] Last Admin: 05/18/20 08:43 Dose: 5 mg Documented by: Azithromycin (Zithromax) 500 mg PO Q24H [facility] Last Admin: 05/17/20 11:10 Dose: 500 mg Documented by: Cyclobenzaprine HCl (Flexeril) 5 mg PO BID PRN PRN Reason: Muscle Spasm Last Admin: 05/18/20 08:43 Dose: 5 mg Documented by: Digoxin (Lanoxin) 250 mcg PO DAILY [facility] Last Admin: 05/18/20 08:43 Dose: 250 mcg Documented by: Diltiazem HCl (Cardizem Cd) 120 mg PO DAILY [facility] Last Admin: 05/18/20 08:41 Dose: 120 mg Documented by: Diltiazem HCl (Cardizem Cd) 180 mg PO DAILY [facility] Last Admin: 05/18/20 08:43 Dose: 180 mg Documented by: Docusate Sodium (Colace) 100 mg PO DAILY [facility] Last Admin: 05/18/20 08:41 Dose: 100 mg Documented by: Duloxetine HCl (Cymbalta) 30 mg PO DAILY [facility] Last Admin: 05/18/20 08:42 Dose: 30 mg Documented by: Dutasteride (Avodart) 0.5 mg PO DAILY [facility] Last Admin: 05/18/20 08:42 Dose: 0.5 mg Documented by: Fentanyl (Duragesic) 50 mcg TRDERM Q72H [facility] Last Admin: 05/16/20 14:37 Dose: 50 mcg Documented by: Ferrous Sulfate (Ferrous Sulfate) 325 mg PO DAILY [facility] Last Admin: 05/18/20 08:42 Dose: 325 mg Documented by: Gabapentin (Neurontin) 300 mg PO TID [facility] Last Admin: 05/18/20 06:50 Dose: 300 mg Documented by: Insulin Aspart (Novolog) 0 unit SUBCUT TIDAC [facility]; Protocol Last Admin: 05/18/20 06:50 Dose: 3 units Documented by: Levothyroxine Sodium (Synthroid) 88 mcg PO DAILY [facility] Last Admin: 05/18/20 08:43 Dose: 88 mcg Documented by: Miscellaneous Information (Remove Patch) 1 ea TRDERM Q72H [facility] Last Admin: 05/16/20 14:36 Dose: 1 ea Documented by: Nystatin (Nystatin Crm) 0 gm TOP BID [facility] Last Admin: 05/18/20 08:51 Dose: 1 applic Documented by: Omeprazole (Omeprazole) 20 mg PO BIDAC [facility] Last Admin: 05/18/20 06:50 Dose: 20 mg Documented by: Ondansetron HCl (Zofran) 4 mg IVPUSH Q4H PRN PRN Reason: Nausea Oxycodone/Acetaminophen (Percocet 325-5 Mg) 1 tab PO Q4H PRN PRN Reason: severe pain Last Admin: 05/18/20 07:31 Dose: 1 tab Documented by: Prednisone (Prednisone) 40 mg PO WITHBREAKFAST [facility] Last Admin: 05/18/20 08:41 Dose: 40 mg Documented by: Rosuvastatin Calcium (Crestor) 5 mg PO BEDTIME [facility] Last Admin: 05/17/20 20:19 Dose: 5 mg Documented by: Sodium Chloride (Saline Flush) 2.5 ml FLUSH ASDIRECTED PRN PRN Reason: Keep Vein Open Spironolactone (Aldactone) 25 mg PO DAILY [facility] Last Admin: 05/18/20 08:43 Dose: 25 mg Documented by: Tamsulosin HCl (Flomax) 0.8 mg PO BEDTIME [facility] Last Admin: 05/17/20 20:21 Dose: 0.8 mg Documented by: Discontinued Medications Albuterol/Ipratropium (Duoneb 3.0-0.5 Mg/3 Ml) 3 ml NEB ONETIME ONE Stop: 05/13/20 05:38 Last Admin: 05/13/20 05:53 Dose: 3 ml Documented by: Albuterol/Ipratropium (Duoneb 3.0-0.5 Mg/3 Ml) 3 ml NEB Q4HRRT [facility] Last Admin: 05/16/20 09:46 Dose: 3 ml Documented by: Azithromycin (Zithromax) 500 mg PO Q24H [facility] Last Admin: 05/13/20 08:23 Dose: 500 mg Documented by: Azithromycin (Zithromax) 500 mg PO Q24H [facility] Last Admin: 05/15/20 08:29 Dose: 500 mg Documented by: Fentanyl (Duragesic) 25 mcg TRDERM Q72H [facility] Last Admin: 05/13/20 12:42 Dose: Not Given Documented by: Fentanyl (Duragesic) 25 mcg TRDERM Q72H [facility] Furosemide (Lasix) 40 mg PO DAILY [facility] Last Admin: 05/15/20 08:31 Dose: 40 mg Documented by: Ceftriaxone Sodium/Dextrose 1 (gm/ Premix) 50 mls @ 100 mls/hr IV Q24H [facility] Sodium Chloride (Normal Saline) 1,000 mls @ 100 mls/hr IV Q10H [facility] Last Admin: 05/13/20 09:00 Dose: 100 mls/hr Documented by: Ceftriaxone Sodium/Dextrose 1 (gm/ Premix) 50 mls @ 100 mls/hr IV Q24H [facility] Last Admin: 05/15/20 00:29 Dose: 100 mls/hr Documented by: Piperacillin Sod/Tazobactam (Sod 4.5 gm/ Sodium Chloride) 100 mls @ 200 mls/hr IV Q6H [facility] Last Admin: 05/17/20 05:58 Dose: 200 mls/hr Documented by: Lactated Ringer's (Ringers, Lactated) 1,000 mls @ 125 mls/hr IV ASDIRECTED [facility] Last Admin: 05/16/20 01:10 Dose: 125 mls/hr Documented by: Vancomycin HCl 1.5 gm/ Premix 300 mls @ 200 mls/hr IV Q12H [facility] Last Admin: 05/16/20 00:49 Dose: 200 mls/hr Documented by: Insulin Aspart (Novolog) 0 unit SUBCUT TIDAC [facility]; Protocol Last Admin: 05/15/20 18:17 Dose: Not Given Documented by: Insulin Aspart (Novolog) 10 unit SUBCUT ONETIME ONE Stop: 05/15/20 17:31 Last Admin: 05/15/20 17:37 Dose: 10 units Documented by: Iopamidol (Isovue-370 (76%)) 100 ml IVPUSH ONETIME STA Stop: 05/13/20 07:29 Last Admin: 05/13/20 07:29 Dose: 100 ml Documented by: Methylprednisolone Sodium Succinate (Solu-Medrol) 125 mg IV ONETIME ONE Stop: 05/13/20 05:41 Last Admin: 05/13/20 05:57 Dose: 125 mg Documented by: Methylprednisolone Sodium Succinate (Solu-Medrol) 40 mg IV Q12H [facility] Last Admin: 05/16/20 08:53 Dose: 40 mg Documented by: Morphine Sulfate (Morphine) 4 mg IVPUSH ONETIME ONE Stop: 05/13/20 06:43 Last Admin: 05/13/20 07:30 Dose: 4 mg Documented by: Morphine Sulfate (Morphine) 2 mg IVPUSH Q3H PRN PRN Reason: Pain Last Admin: 05/13/20 12:36 Dose: 2 mg Documented by: Morphine Sulfate (Morphine) 3 mg IVPUSH ONETIME ONE Stop: 05/13/20 13:31 Last Admin: 05/13/20 13:29 Dose: 3 mg Documented by: Morphine Sulfate (Morphine) 4 mg IVPUSH Q3H PRN PRN Reason: Pain Last Admin: 05/16/20 07:09 Dose: 4 mg Documented by: Oxycodone HCl (Oxycodone) 10 mg PO ONETIME ONE Stop: 05/13/20 08:14 Last Admin: 05/13/20 08:23 Dose: 10 mg Documented by: Oxycodone/Acetaminophen (Percocet 325-5 Mg) 1 tab PO Q6H PRN PRN Reason: severe pain Last Admin: 05/16/20 12:27 Dose: 1 tab Documented by: Vancomycin HCl (Pharmacy To Dose - Vancomycin) 1 dose .XX ASDIRECTED YULISA - Exam General: Reports: Alert, Oriented, Cooperative, No Acute Distress Lungs: Reports: Clear to Auscultation, Normal Respiratory Effort Cardiovascular: Reports: Regular Rate, Regular Rhythm GI/Abdominal Exam: Normal Bowel Sounds, Soft, Non-Tender Back Exam: Reports: Full Range of Motion, CVA Tenderness (L), CVA Tenderness (R), Other (sat up per self with little pain) Neurological: Reports: No New Focal Deficit Psy/Mental Status: Reports: Alert, Normal Affect, Normal Mood
== END 2020-05-18 12:55 | disposition home or self-care (01) | DRG 551 ==
LOC: MW.ED 05:32 → MW.MS 08:15 → OBSVTOIN 09:35
PROVIDERS: ADMIT Student in an Organized Health Care Education/Training Program; ATTEND Student in an Organized Health Care Education/Training Program
DX: M48.062 Spinal stenosis, lumbar region with neurogenic claudication (principal); J18.9 Pneumonia, unspecified organism; J44.0 Chronic obstructive pulmonary disease with (acute) lower respiratory infection; I48.20 Chronic atrial fibrillation, unspecified; J44.9 Chronic obstructive pulmonary disease, unspecified; I50.22 Chronic systolic (congestive) heart failure; J44.1 Chronic obstructive pulmonary disease with (acute) exacerbation; M54.5 Low back pain; M79.7 Fibromyalgia; I11.0 Hypertensive heart disease with heart failure; M51.16 Intervertebral disc disorders with radiculopathy, lumbar region; G47.33 Obstructive sleep apnea (adult) (pediatric); K44.9 Diaphragmatic hernia without obstruction or gangrene; E03.9 Hypothyroidism, unspecified; M06.9 Rheumatoid arthritis, unspecified; D63.8 Anemia in other chronic diseases classified elsewhere; E78.5 Hyperlipidemia, unspecified; N40.1 Benign prostatic hyperplasia with lower urinary tract symptoms; E66.9 Obesity, unspecified; K43.9 Ventral hernia without obstruction or gangrene; G89.29 Other chronic pain; E61.1 Iron deficiency; Z98.890 Other specified postprocedural states; F17.200 Nicotine dependence, unspecified, uncomplicated; R33.8 Other retention of urine; E78.00 Pure hypercholesterolemia, unspecified; Z79.890 Hormone replacement therapy; M10.9 Gout, unspecified; M19.90 Unspecified osteoarthritis, unspecified site; E11.9 Type 2 diabetes mellitus without complications; F17.210 Nicotine dependence, cigarettes, uncomplicated; M54.30 Sciatica, unspecified side; Z90.49 Acquired absence of other specified parts of digestive tract; Z79.01 Long term (current) use of anticoagulants; Z99.81 Dependence on supplemental oxygen; Z79.84 Long term (current) use of oral hypoglycemic drugs; Z79.52 Long term (current) use of systemic steroids; Z79.899 Other long term (current) drug therapy; Z68.25 Body mass index [BMI] 25.0-25.9, adult
CPT/HCPCS: 36415; 71045; 74177; 80048; 83880; 85025; 96374; 96375; 99285; A9270 ×2; J2270; J2930; J7030; Q9967; 72141; 72141-26; 81003; 82272; 82962; 83735; 87040; 87086; 94640; 97161-GP; 97165-GO; 99282; J0696; J1815-GY; J2543; J2920; J3370; J7050; J7120; J7620-GY